=== PATIENT | female | born 1955 | race Caucasian/White ===

== ENCOUNTER 2024-03-03 16:21 | Inpatient (IN) | payer OTHER, SELFPAY ==
[2024-03-03] VITALS (9 sets, daily range): BP systolic 137–157; BP diastolic 62–96; BMI 20.3
--- NOTE | 2024-03-03 13:41 | ED.GENMED ---
History of Present Illness
General
Chief Complaint: Breathing Problem
Time Seen by Provider: 03/03/24 13:40
Travel History
Have you had any contact with someone who has COVID-19?: No
Do you have any symptoms of coronavirus? Fever > 100 degrees, chills, cough, shortness of breath, sore throat, loss of taste or smell, muscle aches, or headache?: No
History of Present Illness
History of Present Illness:
HPI: Patient presents with shortness of breath. She has a history of COPD. This feels exactly the time she required admission to the hospital back in October of last year. At that time she responded to IV steroids and IV antibiotics. 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
EXAM:
GENERAL: Well appearing in no distress
HEENT: Moist oral mucosa
CARDIOVASCULAR: No murmurs, normal heart rate, regular rhythm, No chest wall tenderness
PULMONARY: No respiratory distress, breath sounds are somewhat decreased with scattered wheeze
ABDOMEN: Soft with no peritoneal signs, no tenderness
NEUROLOGIC: Excellent strength all extremities, no coordination deficits
PSYCHIATRIC: Appropriate mental status, normal insight and judgement
EXTREMITIES: Nontender, no edema, moves all extremities equally
SKIN: No rash, no lesions
TIME OF INITIAL ENCOUNTER: 1:45 PM
NUMBER AND COMPLEXITY OF PROBLEMS ADDRESSED AT THE ENCOUNTER
� Chronic conditions affecting care: COPD, seasonal allergies
� Acute Exacerbation and/or Progression of Chronic Illness: This is an acute exacerbation of a chronic problem
� Differential Diagnosis includes: COPD exacerbation, pneumonia, reactive airway disease, viral syndrome
AMOUNT AND/OR COMPLEXITY OF DATA TO BE REVIEWED AND ANALYZED
� I performed an independent evaluation of and my interpretation is:
EKG:
CT:
X-rays: No definite acute abnormality on chest x-ray however the radiologist suspected an abnormality concerning for pneumonia at the [facility] start antibiotics
Laboratory Studies: CBC and chemistries unremarkable, BNP and troponin also unremarkable, COVID-negative
Other:
� Review of other/old records: I reviewed records. The patient was admitted here in October 2023t that time it is documented the patient also was on antibiotics and steroid taper which did not help. She was admitted with IV
steroids/nebs.
� Clinical information was obtained by an independent historian: None needed
� Prescriptions/Medications Considered but not given:
� Further testing considered but not performed:
RISK OF COMPLICATIONS AND/OR MORBIDITY OR MORTALITY OF PATIENT MANAGEMENT
� Social determinants of health affecting care: Patient lives at home
� Discussion with other providers: Hospitalist for admission at 3:14 PM
� Escalation of care including admission/observation vs risk of discharge considered: The patient has tried oral antibiotics and steroids without improvement. In the past she required admission for IV treatment. I reassessed
the patient at 3:20 PM. She does not feel comfortable with continued outpatient management. Given the abnormality noted by radiologist, will start IV antibiotics.
Past History
Past History
ED Past Medical History: Asthma and COPD; Negative HTN, Hypercholesterolemia or NIDDM
ED Past Surgical History: None
Social History
Tobacco: Smoker
Alcohol: None
Drug: None
Personal: Single
Living: with family
Phy Exam
Physical Exam
Physical Exam:
See HPI
Scores
Heart Failure Risk
Heart Failure Risk Score: Not Applicable
Course
Orders/Labs/Results
Orders:
Orders
03/03/24 13:41
CR Chest - 2 Views Urgent
Comment:
Reason For Exam: sob
03/03/24 13:47
Basic Metabolic Panel Urgent
Complete Blood Count/With Diff Urgent
Magnesium Urgent
NT-proBNP Urgent
Troponin I Urgent
Ipratropium/Albuterol Sulfate [Duoneb] 3 ml INH R NOW ONE
Ipratropium/Albuterol Sulfate [Duoneb] 3 ml INH R NOW ONE
03/03/24 13:48
MethylPREDNISolone PF [Solu-Medrol Pf] 125 mg IV NOW STA
03/03/24 14:05
COVID-19 Antigen Urgent
Source: Nasal Swab
03/03/24 15:21
Electrocardiogram (*1) Urgent
Reason for Study: Shortness of Breath
EKG- Treatment ONCE
03/03/24 15:48
Azithromycin 500 mg IVPB NOW Azithromycin 500 mg/250 ml [Zithromax Infusion] 500 mg in 250 ml IV NOW
CefTRIAXone [Rocephin] 1,000 mg IV NOW STA
Abnormal Lab Results
03/03/24
13:47
MCH 32.1 H pg
(27.0-31.0)
Abs Immat Gran (auto) 0.1 H 10^3/uL
(0-0.05)
Absolute Neuts (auto) 7.7 H 10^3/uL
(1.4-6.5)
Immature Gran % 0.7 H %
(0-0.5)
Neutrophils % 78.5 H %
(42.2-75.2)
Lymphocytes % 15.3 L %
(20.5-51.1)
03/03/24 13:47
03/03/24 13:47
Vital Signs
Initial and Last Documented VS:
Initial Vital Signs
Temp Pulse Resp BP Pulse Ox
97.9 F 111 18 157/96 90
03/03/24 13:07 03/03/24 13:07 03/03/24 13:07 03/03/24 13:07 03/03/24 13:07
Last Documented Vital Signs
Temp Pulse Resp BP Pulse Ox
97.9 F 110 15 155/79 91
03/03/24 13:07 03/03/24 15:30 03/03/24 15:30 03/03/24 15:11 03/03/24 15:30
*Critical Care Note
Total Time (30-74mins, 75-104mins- exclusive of procedures): Not Applicable
ED Attending Note
-
Portions of this chart may have been created with voice recognition software.� Occasional wrong word or��sound alike� substitutions may have occurred due to the inherent limitations of voice recognition software.
Discharge Plan
Departure
Patient Disposition: Admit
Date of Disposition: 03/03/24
Time of Disposition: 15:19
Presentation/result/management discussed w/ accepting MD/DO: Hospitalist
Patient with high blood pressure during this ER visit?: Yes
Discharge Problem:
COPD exacerbation
Prescriptions:
No Action
montelukast 10 MG tablet
10 mg PO HS
fluticasone propion-salmeterol [Wixela Inhub] 500-50 mcg/dose blister with device
1 inh INHALATION R BID
budesonide 0.5 mg/2 mL suspension for nebulization
0.5 mg inhalation R BID
multivitamin Tablet
1 tab PO HS
vitamin B complex Tablet Extended Release
1 tab PO HS
cetirizine 10 mg Tablet
10 mg PO DAILY
benzonatate 200 mg capsule
200 mg PO TID PRN (Reason: cough)
calcium carbonate-vitamin D3 [Calcium 600 + D(3)] 600 mg-5 mcg (200 unit) Tablet
1 tab PO HS
guaifenesin [Mucinex] 600 mg Tablet Extended Release 12hr
600 mg PO BID
clotrimazole 10 mg mark
10 mg mucous membrane 5/D
doxycycline hyclate 100 mg capsule
100 mg PO DAILY
ipratropium-albuterol 0.5 mg-3 mg(2.5 mg base)/3 mL solution for nebulization
3 ml INHALATION R TID
azithromycin 250 mg tablet
250 mg PO DAILY
famotidine 20 mg Tablet
20 mg PO BID PRN (Reason: heartburn/acid reflux)
methylprednisolone 4 mg tablets,dose pack
4 mg PO PER PKG DIR
Patient Comments:
03/03/2024: pt is on the 2nd to last day of pack
bupropion HCl 150 mg tablet extended release 24 hr
150 mg PO DAILY
Referrals:
Kirsty Mae MD [Family Provider] -
Interventions
Interventions:
*Risk Screen - Suicide Last Done: 03/03/24 13:07
*General Assessment Last Done: 03/03/24 13:07
*Neglect/Abuse Screening Last Done: 03/03/24 13:07
ED- Fall Risk Assessment Last Done: 03/03/24 13:49
*ED COVID-19 Vaccine History Last Done: 03/03/24 13:07
ED- Cardiac Assessment Last Done: 03/03/24 13:49
ED- Pulmonary Assessment Last Done: 03/03/24 13:47
Discharge Date and Time
Print Language: [place] CITIZEN
[2024-03-03] MEDS: DUONEB 3 ML INH ×2 (13:55→13:56)
[2024-03-03] MEDS: SOLU-MEDROL PF 125 MG IV (13:55)
[2024-03-03 14:02] LABS: % Basophils 0.3 % (0-2); % Immature Granulocytes 0.7 % (0-0.5); % Lymphocytes 15.3 % (20.5-51.1); % Monocytes 5.2 % (1.7-9.3); % Neutrophils 78.5 % (42.2-75.2); Absolute Immature Granulocytes 0.1 10^3/uL (0-0.05); Absolute Lymphocytes 1.5 10^3/uL (1.2-3.4); Absolute Monocytes 0.5 10^3/uL (0.1-0.6); Absolute Neutrophils 7.7 10^3/uL (1.4-6.5); Hematocrit 45.2 % (37.0-47.0); Hemoglobin 15.1 g/dL (12.0-16.0); Mean Corp Hgb Conc. 33.4 g/dL (33.0-37.0); Mean Corpuscular Hgb 32.1 pg (27.0-31.0); Mean Platelet Volume 9.6 fL (7.4-10.4); Nucleated Red Blood Cells % 0 %; Platelet Count 286 10^3/uL (130-400); Red Blood Cell Count 4.71 10^6/uL (4.20-5.40); Red Cell Dist. Width 12.5 % (11.5-14.5); White Blood Cell Count 9.8 10^3/uL (4.8-10.8)
[2024-03-03 14:19] LABS: Blood Urea Nitrogen 15 mg/dl (7-17); Calcium 9.9 mg/dl (8.4-10.2); Carbon Dioxide 27 mmol/L (22-30); Chloride 106 mmol/L (98-107); Estimated Creatinine Clearance 82 ml/min; Glucose 86 mg/dl (70-99); Potassium 4.2 mmol/L (3.5-5.1); Sodium 137 mmol/L (135-145); eGFR > 60.00
[2024-03-03 14:30] LABS: NT-proBNP 165 pg/ml; Troponin I < 0.012 ng/ml
[2024-03-03 14:37] LABS: COVID-19 Antigen Negative (Negative)
--- NOTE | 2024-03-03 16:08 | HPS.HSE ---
Family Physician
-
Family Physician: Kirsty Mae
Chief Complaint
-
Shortness of breath
History of Present Illness
68-year-old female with past medical history of COPD, GERD, onychomycosis, seasonal allergies came to the hospital with shortness of breath known to be in COPD exacerbation. Patient was seen by pulmonary outpatient 3 days ago and was prescribed
oral steroids along with doxycycline. Per patient it did not improve her symptoms. In the ED patient was wheezing and short of breath. Patient received IV Solu-Medrol. Chest x-ray was consistent with pneumonia. Denies fever/chills. Denies any
nausea, vomiting, diarrhea, constipation.
Medical History
Past Medical History
Past Medical History: Reports COPD and GERD
Past Surgical History: Reports Other (Lumpectomy, skin lesion excision)
Social History
Tobacco: Former Smoker
Alcohol: None
Drug: None
Family History
Family History: Not pertinent
Allergies / Home Medications
Allergies reflects when Allergies were last updated in [email or web address].
Home Medications with original date entered in [email or web address]
Allergy/Medication List:
Allergies
Allergy/AdvReac Type Severity Reaction Status Date / Time
[facility] All[facility] Rash Verified 03/03/24 13:09
Home Medications
montelukast 10 mg tablet 10 mg PO HS 05/11/20
benzonatate 200 mg capsule 200 mg PO TID PRN cough 10/22/23
budesonide 0.5 mg/2 mL suspension for nebulization 0.5 mg inhalation R BID 10/22/23
calcium carbonate 600 mg-vitamin D3 5 mcg (200 unit) tablet (Calcium 600 + D(3)) 1 tab PO HS 10/22/23
cetirizine 10 mg tablet 10 mg PO DAILY 10/22/23
fluticasone 500 mcg-salmeterol 50 mcg/dose blistr powdr for inhalation (Wixela Inhub) 1 inh inhalation R BID 10/22/23
guaifenesin 600 mg tablet, extended release 12 hr (Mucinex) 600 mg PO BID 10/22/23
multivitamin 1 tab PO HS 10/22/23
vitamin B complex 1 tab PO HS 10/22/23
azithromycin 250 mg tablet 250 mg PO DAILY 03/03/24
bupropion HCl 150 mg 24 hr tablet, extended release 150 mg PO DAILY 03/03/24
clotrimazole 10 mg mark 10 mg mucous membrane 5/D 03/03/24
doxycycline hyclate 100 mg capsule 100 mg PO DAILY 03/03/24
famotidine 20 mg tablet 20 mg PO BID PRN heartburn/acid reflux 03/03/24
ipratropium 0.5 mg-albuterol 3 mg (2.5 mg base)/3 mL nebulization soln 3 ml inhalation R TID 03/03/24
methylprednisolone 4 mg tablets in a dose pack 4 mg PO PER PKG DIR 03/03/24
Review of Systems
-
History Source: Patient
A 12 point ROS was completed and negative except as noted: Yes
Respiratory: Reports Trouble Breathing
Physical Exam
Vital Signs
Vital Signs
Temp Pulse Resp BP Pulse Ox
97.9 F 110 15 155/79 91
03/03/24 13:07 03/03/24 15:30 03/03/24 15:30 03/03/24 15:11 03/03/24 15:30
Physical Exam
General: No Apparent Distress and Comfortable
HEENT: Anicteric and Moist mucous membranes
Respiratory: Clear, Wheezes and Non Labored Respirations
Cardiac: S1/S2, Regular Rhythm and Tachycardia
Breast: Deferred by me
GI: Soft, Non Tender, Non Distended and Normal Bowel Sounds
Rectal: Deferred by Provider
Genito-urinary: No Hood
Musculoskeletal: No Edema
Neuro: Awake, Alert, Oriented and AO x 3
Psych: Calm and Intact Judgment/Insight
Laboratory Results
-
03/03/24 13:47
03/03/24 13:47
Laboratory Results
Troponin I < 0.012 ng/ml 03/03/24 13:47
Data Reviewed
-
Diagnostic Radiology: Report Reviewed by me
Lab Data: Labs Reviewed by me and Discussed with Patient
Impression/Plan
-
Acute COPD exacerbation
Start IV steroids
Pulmicort, Wixela
Xopenex/ipratropium standing and as needed; tachycardic after albuterol
Mucinex, Tessalon Perles, Acapella
Pulmonary evaluation
Pneumonia; suspect community acquired
start CFTX and azithromycin
monitor
History of GERD
Patient to follow-up with GI
Seasonal allergies
DVT prophylaxis
Lovenox
Full code
I spent a total of 77 minutes with the patient or on the floor. More than 50% of this time involved counseling and coordination of care.
[2024-03-03] MEDS: ROCEPHIN 1000 MG IV (16:26)
[2024-03-03] MEDS: ZITHROMAX INFUSION 250 IV (16:27)
[2024-03-03] MEDS: LOVENOX 40 MG SC (18:44)
[2024-03-03] MEDS: MYCELEX TROCHE 10 MG PO ×2 (18:45→21:10)
[2024-03-03] MEDS: XOPENEX 1.25 MG INHALANT SOLUTION INH ×2 (19:22→20:08)
[2024-03-03] MEDS: ADVAIR HFA 230/21 MCG INHALER 2 PUFF INH (19:22)
[2024-03-03] MEDS: PULMICORT 0.5 MG INH (19:23)
[2024-03-03] MEDS: ATROVENT NEBULES 0.5 MG INH (19:23)
[2024-03-03] MEDS: MUCINEX 1200 MG PO (19:48)
[2024-03-03] MEDS: SINGULAIR 10 MG PO (21:10)
[2024-03-03] MEDS: THERAGRAN 1 TABLET PO (21:10)
[2024-03-03] MEDS: OSCAL 500 + D 500 MG PO (21:10)
[2024-03-03] MEDS: B COMPLEX w/VITAMIN C 1 CAPLET PO (21:10)
[2024-03-03] MEDS: TESSALON PERLES 200 MG PO (21:10)
[2024-03-03] MEDS: TYLENOL 650 MG PO (22:00)
[2024-03-04] VITALS (7 sets, daily range): BP systolic 137–162; BP diastolic 78–90; BMI 20.1
[2024-03-04 07:10] LABS: % Basophils 0.1 % (0-2); % Immature Granulocytes 0.6 % (0-0.5); % Monocytes 6.5 % (1.7-9.3); % Neutrophils 77.8 % (42.2-75.2); Absolute Immature Granulocytes 0.1 10^3/uL (0-0.05); Absolute Lymphocytes 1.5 10^3/uL (1.2-3.4); Absolute Monocytes 0.7 10^3/uL (0.1-0.6); Absolute Neutrophils 7.8 10^3/uL (1.4-6.5); Hematocrit 37.2 % (37.0-47.0); Hemoglobin 12.9 g/dL (12.0-16.0); Mean Corp Hgb Conc. 34.7 g/dL (33.0-37.0); Mean Corpuscular Hgb 31.9 pg (27.0-31.0); Mean Corpuscular Volume 92.1 fL (81.0-99.0); Mean Platelet Volume 9.4 fL (7.4-10.4); Nucleated Red Blood Cells % 0 %; Platelet Count 260 10^3/uL (130-400); Red Blood Cell Count 4.04 10^6/uL (4.20-5.40); Red Cell Dist. Width 12.6 % (11.5-14.5)
[2024-03-04 07:51] LABS: Blood Urea Nitrogen 18 mg/dl (7-17); Calcium 9.6 mg/dl (8.4-10.2); Carbon Dioxide 26 mmol/L (22-30); Chloride 106 mmol/L (98-107); Estimated Creatinine Clearance 81 ml/min; Glucose 112 mg/dl (70-99); Potassium 4.1 mmol/L (3.5-5.1); Sodium 137 mmol/L (135-145); eGFR > 60.00
[2024-03-04] MEDS: MYCELEX TROCHE 10 MG PO ×5 (08:17→20:34)
[2024-03-04] MEDS: MUCINEX 1200 MG PO ×2 (08:17→20:33)
[2024-03-04] MEDS: TESSALON PERLES 200 MG PO ×3 (08:17→20:34)
[2024-03-04] MEDS: DECADRON 4 MG IV ×2 (08:17→15:17)
[2024-03-04] MEDS: ZYRTEC 10 MG PO (08:17)
[2024-03-04] MEDS: WELLBUTRIN XL (24 hour extended release) 150 MG PO (08:17)
[2024-03-04] MEDS: ADVAIR HFA 230/21 MCG INHALER 2 PUFF INH ×2 (08:35→19:35)
[2024-03-04] MEDS: XOPENEX 1.25 MG INHALANT SOLUTION INH ×3 (08:36→19:36)
[2024-03-04] MEDS: PULMICORT 0.5 MG INH ×2 (08:36→19:35)
[2024-03-04] MEDS: ATROVENT NEBULES 0.5 MG INH ×3 (08:36→19:35)
[2024-03-04 09:47] LABS: Hepatitis C Antibody Negative (Negative)
--- NOTE | 2024-03-04 13:12 | W.PN.HOSP.TC ---
Today's Communication/Plan
-
monitor vital signs and see plan
Continue with Decadwisam nebs
Pulmonary to see
mayelin olsen acapella
Assessment / Plan
Assessment / Plan
General: No Apparent Distress and Comfortable
HEENT: Anicteric and Moist mucous membranes
Respiratory: Clear, Wheezes and Non Labored Respirations
Cardiac: S1/S2, Regular Rhythm and Tachycardia
GI: Soft, Non Tender, Non Distended and Normal Bowel Sounds
Genito-urinary: No Hood
Musculoskeletal: No Edema
Neuro: Awake, Alert, Oriented and AO x 3
Psych: Calm and Intact Judgment/Insight
Acute COPD exacerbation
cw IV steroids
Pulmicort, Wixela
Xopenex/ipratropium standing and as needed; tachycardic after albuterol
Mayelin Olsen Acapella
Pulmonary consulted
follows with Dr Foster outpatient
Pneumonia; suspect community acquired
cw CFTX and azithromycin
monitor
History of GERD
Patient to follow-up with GI
Seasonal allergies
DVT prophylaxis
Lovenox
Full code
Anticipated Discharge: > 48 hours
Subjective/Interval History
-
Date of Service: March 04, 2024
denies pain
Objective Data
-
Labs:
Laboratory Results
03/04/24
06:47
WBC 10.0
Hgb 12.9
Hct 37.2
Plt Count 260
Sodium 137
Potassium 4.1
Chloride 106
Carbon Dioxide 26
BUN 18 H
Creatinine 0.6
Glucose 112 H
Calcium 9.6
Vital Signs:
Vital Signs
Temp Pulse Resp BP Pulse Ox
98.1 F 103 20 142/78 95
03/04/24 11:00 03/04/24 12:51 03/04/24 12:51 03/04/24 11:00 03/04/24 12:51
--- NOTE | 2024-03-04 14:00 | CON.PUL ---
Consultation
Consultation Request
Date/Time Consultation Requested: 03/04/2024
Date/Time Consultation Performed: 03/04/2024
Requesting Provider: Dr. Claire
Performing Provider: Dr. Orlando Manuel
Reason for Consultation: Acute exacerbation of COPD
Medical History
-
History of Present Illness:
68-year-old woman with past medical history significant for COPD, GERD, seasonal allergies who came to the hospital complaining of shortness of breath. She was found to be in acute exacerbation of COPD. 3 days ago she was seen in the pulmonary
office. She was prescribed doxycycline and steroids. Symptoms continued to progress.
She was found to be bronchospastic in the emergency room. She was placed on IV steroids and nebulizer.
Chest x-ray was consistent with pneumonia.
We were consulted on 03/04/2024 for evaluation.
Past Medical History
Past Medical History: Other (See assessment and plan section)
Social History
Tobacco: Former Smoker
Alcohol: None
Drug: None
Family History
Family History: Reviewed & Not Pertinent
Allergies / Home Medications
Allergies
Allergy/AdvReac Type Severity Reaction Status Date / Time
[facility] Allergy Rash Verified 03/03/24 13:09
Home Medications
�Medication �Instructions �Recorded �Confirmed �Last Taken �Type
montelukast 10 mg tablet 10 mg PO HS ASTHMA 05/11/20 03/03/24 03/02/24 History
benzonatate 200 mg capsule 200 mg PO TID PRN cough 10/22/23 03/03/24 10/22/23 History
budesonide 0.5 mg/2 mL suspension 0.5 mg inhalation R BID 10/22/23 03/03/24 03/03/24 History
for nebulization Lung/Breathing Issues
calcium carbonate 600 mg-vitamin 1 tab PO HS Supplement 10/22/23 03/03/24 03/02/24 History
D3 5 mcg (200 unit) tablet
(Calcium 600 + D(3))
cetirizine 10 mg tablet 10 mg PO DAILY Allergies 10/22/23 03/03/24 03/03/24 History
fluticasone 500 mcg-salmeterol 50 1 inh inhalation R BID 10/22/23 03/03/24 03/03/24 History
mcg/dose blistr powdr for Lung/Breathing Issues
inhalation (Wixela Inhub)
guaifenesin 600 mg tablet, 600 mg PO BID Cough 10/22/23 03/03/24 03/03/24 History
extended release 12 hr (Mucinex)
multivitamin 1 tab PO HS Supplement 10/22/23 03/03/24 03/02/24 History
vitamin B complex 1 tab PO HS Supplement 10/22/23 03/03/24 03/02/24 History
azithromycin 250 mg tablet 250 mg PO DAILY Infection 03/03/24 03/03/24 2 Days Ago History
~03/01/24
bupropion HCl 150 mg 24 hr tablet, 150 mg PO DAILY Mental 03/03/24 03/03/24 03/03/24 History
extended release Health/Anxiety
clotrimazole 10 mg mark 10 mg mucous membrane 5/D 03/03/24 03/03/24 03/03/24 History
doxycycline hyclate 100 mg capsule 100 mg PO DAILY Infection 03/03/24 03/03/24 03/03/24 History
famotidine 20 mg tablet 20 mg PO BID PRN heartburn/acid 03/03/24 03/03/24 Unknown History
reflux
ipratropium 0.5 mg-albuterol 3 mg 3 ml inhalation R TID 03/03/24 03/03/24 03/03/24 History
(2.5 mg base)/3 mL nebulization Lung/Breathing Issues
soln
methylprednisolone 4 mg tablets in 4 mg PO PER PKG DIR 03/03/24 03/03/24 03/03/24 History
a dose pack Anti-Inflammatory 2 tabs
Review of Systems
-
History Source: Patient
All other systems: Negative unless noted
Vitals / Labs / Diagnostic Testing
Vital Signs
Temp Pulse Resp BP Pulse Ox
98.1 F 103 20 142/78 95
03/04/24 11:00 03/04/24 12:51 03/04/24 12:51 03/04/24 11:00 03/04/24 12:51
Lab Data
03/04/24 06:47
03/04/24 06:47
Diagnostic Testing:
Physical Exam
-
HEENT: Normocephalic
Cardiovascular: S1/S2
Respiratory: Wheeze and Non-Labored Respirations
GI: Soft and Non Distended
Skin: Warm
General: Respiratory Distress (n)
Assessment
-
68-year-old woman with history of COPD, severe. Usually follows up with Dr. Foster. Back to the emergency room complaining of shortness of breath and coughing. Found to have left lower lobe pneumonia and bronchospasm. We were consulted on
03/04/2024 for evaluation
Acute exacerbation of COPD
proBNP and cardiac biomarkers negative
Community-acquired pneumonia, LLL
Chest x-ray 03/03/2024: Showed left lower lobe infiltrate.
Sputum culture pending
Chronic exertional dyspnea
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
Admission for acute exacerbation in October 2023
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 On fluticasone/salmeterol (wixela), azithromycin, albuterol
Pulmonary function testing 07/07/2023: Severe airflow obstruction. FEV1 0.81 L - 37% of predicted. FEV1/FVC ratio 35%. Air-trapping RV/TLC ratio 50%. Diffusion capacity is severely reduced at 21%.
Thyroid nodule
Lumpectomy for benign lesion
Former smoker: 40+ pack year history. Quit 10/2023
Assessment and plan:
Continue with current plan-in the outpatient setting on maximal medical therapy. Patient does have significant air trapping and hyperinflation based on last pulmonary function testing likely contributing to her exertional dyspnea.
-
Continue dexamethasone without change. Minimal expiratory wheezing with forced expiration. Hopefully can start tapering down steroids tomorrow.
Pulmicort/albuterol/Atrovent physical therapy as tolerated
Nebulizers
Antibiotics for community-acquired pneumonia ceftriaxone/azithromycin
Sputum culture if possible
Secretion clearance interventions: Acapella device, increase activity as able.
Continue mucolytic's/antitussive.
Deep breathing exercises.
-
Pulmonary supplemental oxygen. Usually normal oxygen at home.
Wean off as able.
-
Patient will need radiographic follow-up to document resolution of left lower lobe infiltrate. Based on prior CT chest from 10/2023 there was no abnormality in that area.
-
May benefit from pulmonary rehabilitation if not provided in the past.
-
DVT prophylaxis- lovenox
--- NOTE | 2024-03-04 15:06 | CM ---
Patient seen bedside, initial assessment completed. Patient reports she resides with her sister, brother in law, and nephew in a one story home, two steps to enter. Patient denies DME, VN, or SNF. Patient confirms PCP Kirsty Mae, pharmacy [facility]
[place]. Patient confirms prescription coverage, denies food insecurities at home. CM will continue to follow for discharge planning needs.
Plan; home no needs likely.
[2024-03-04] MEDS: STERILE WATER FOR INJECTION 10 ML IV (15:18)
[2024-03-04] MEDS: ROCEPHIN 1000 MG IV (15:18)
[2024-03-04] MEDS: ZITHROMAX INFUSION 250 IV (15:18)
[2024-03-04] MEDS: LOVENOX 40 MG SC (17:28)
[2024-03-04] MEDS: B COMPLEX w/VITAMIN C 1 CAPLET PO (20:34)
[2024-03-04] MEDS: SINGULAIR 10 MG PO (20:34)
[2024-03-04] MEDS: OSCAL 500 + D 500 MG PO (20:34)
[2024-03-04] MEDS: THERAGRAN 1 TABLET PO (20:34)
[2024-03-05] VITALS (7 sets, daily range): BP systolic 115–154; BP diastolic 65–90; PULSE 110; O2SAT 95; BMI 20.4
[2024-03-05] MEDS: DECADRON 4 MG IV ×4 (00:36→23:08)
[2024-03-05 08:01] LABS: % Basophils 0.2 % (0-2); % Immature Granulocytes 1.1 % (0-0.5); % Monocytes 4.2 % (1.7-9.3); % Neutrophils 84.5 % (42.2-75.2); Absolute Immature Granulocytes 0.2 10^3/uL (0-0.05); Absolute Lymphocytes 1.3 10^3/uL (1.2-3.4); Absolute Monocytes 0.6 10^3/uL (0.1-0.6); Absolute Neutrophils 11.2 10^3/uL (1.4-6.5); Hematocrit 40.4 % (37.0-47.0); Hemoglobin 13.6 g/dL (12.0-16.0); Mean Corp Hgb Conc. 33.7 g/dL (33.0-37.0); Mean Corpuscular Hgb 31.9 pg (27.0-31.0); Mean Corpuscular Volume 94.6 fL (81.0-99.0); Mean Platelet Volume 9.7 fL (7.4-10.4); Nucleated Red Blood Cells % 0 %; Platelet Count 286 10^3/uL (130-400); Red Blood Cell Count 4.27 10^6/uL (4.20-5.40); Red Cell Dist. Width 12.6 % (11.5-14.5); White Blood Cell Count 13.3 10^3/uL (4.8-10.8)
[2024-03-05] MEDS: PULMICORT 0.5 MG INH ×2 (08:01→20:16)
[2024-03-05] MEDS: XOPENEX 1.25 MG INHALANT SOLUTION INH ×3 (08:02→20:16)
[2024-03-05] MEDS: MYCELEX TROCHE 10 MG PO ×4 (08:02→20:48)
[2024-03-05] MEDS: MUCINEX 1200 MG PO ×2 (08:02→20:48)
[2024-03-05] MEDS: ADVAIR HFA 230/21 MCG INHALER 2 PUFF INH ×2 (08:02→20:05)
[2024-03-05] MEDS: TESSALON PERLES 200 MG PO ×3 (08:02→20:48)
[2024-03-05] MEDS: ATROVENT NEBULES 0.5 MG INH ×3 (08:02→20:05)
[2024-03-05] MEDS: ZYRTEC 10 MG PO (08:05)
[2024-03-05] MEDS: WELLBUTRIN XL (24 hour extended release) 150 MG PO (08:05)
[2024-03-05 08:37] LABS: Blood Urea Nitrogen 19 mg/dl (7-17); Calcium 9.9 mg/dl (8.4-10.2); Carbon Dioxide 28 mmol/L (22-30); Chloride 106 mmol/L (98-107); Estimated Creatinine Clearance 82 ml/min; Glucose 117 mg/dl (70-99); Potassium 4.4 mmol/L (3.5-5.1); Sodium 137 mmol/L (135-145); eGFR > 60.00
--- NOTE | 2024-03-05 10:09 | W.PN.PUL3 ---
Today's Communication / Plan
-
O2
Steroids
Budesonide
Xopenex-atrovent
Up OOB as tolerated
PT
IS
Assessment
-
68-year-old woman with history of COPD, severe. Usually follows up with Dr. Foster. Back to the emergency room complaining of shortness of breath and coughing. Found to have left lower lobe pneumonia and bronchospasm. We were consulted on
03/04/2024 for evaluation
Acute exacerbation of COPD
proBNP and cardiac biomarkers negative
Community-acquired pneumonia, LLL
Chest x-ray 03/03/2024: Showed left lower lobe infiltrate.
Sputum culture with NGTD
Chronic exertional dyspnea
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
Admission for acute exacerbation in October 2023
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 On fluticasone/salmeterol (wixela), azithromycin, albuterol
Pulmonary function testing 07/07/2023: Severe airflow obstruction. FEV1 0.81 L - 37% of predicted. FEV1/FVC ratio 35%. Air-trapping RV/TLC ratio 50%. Diffusion capacity is severely reduced at 21%.
Thyroid nodule
Lumpectomy for benign lesion
Former smoker: 40+ pack year history. Quit 10/2023
Assessment and plan:
Continue with current plan-in the outpatient setting on maximal medical therapy. Patient does have significant air trapping and hyperinflation based on last pulmonary function testing likely contributing to her exertional dyspnea.
-
Continue dexamethasone without change. Minimal expiratory wheezing with forced expiration. Hopefully can start tapering down steroids in next 1-2 days.
Pulmicort/xopenex/Atrovent, physical therapy as tolerated
Antibiotics for community-acquired pneumonia ceftriaxone/azithromycin
Sputum culture shows NGTD
Secretion clearance interventions: Acapella device, increase activity as able.
Continue mucolytics/antitussive.
Deep breathing exercises.
-
Pulmonary supplemental oxygen. Usually normal oxygen at home.
Wean off as able.
-
Patient will need radiographic follow-up to document resolution of left lower lobe infiltrate. Based on prior CT chest from 02/2023 there was no abnormality in that area.
-
May benefit from pulmonary rehabilitation if not provided in the past.
-
DVT prophylaxis- lovenox
Total time spent today was 35 minutes for this encounter. Time includes reviewing laboratory test/imaging results, reviewing pertinent medical records, obtaining and reviewing medical history, performing an appropriate exam, ordering medications,
tests and procedures. Time also includes documentation of this encounter, coordinating patient care and communicating with other healthcare professionals. Total time does not include separately billed tests performed on this date of service.
Subjective Data
-
Date of Service:
Date of Service: March 05, 2024
Chief Complaint: Pulmonary Follow Up
Subjective:
Patient seen today. Currently on 2 L/min breathing comfortably. She was upset when I walk into the room because her food for dinner had come early and she was not hungry. She says she was still stuffed from lunch. She is really just frustrated
because she is back in the hospital again and she is tired of being sick. She has a minimal cough. She denies chest pain, headache, fevers or chills.
Review of Systems
General: Other (Negative unless mentioned above)
Objective Data
Data Reviewed
Vital Signs / I&O / Oxygen:
Vital Signs
Temp Pulse Resp BP Pulse Ox
97.6 F 90 18 154/90 96
03/05/24 07:00 03/05/24 08:06 03/05/24 08:06 03/05/24 07:00 03/05/24 08:06
Intake and Output
03/04/24 03/05/24 03/06/24
06:59 06:59 06:59
Intake Total 1210 / 1210
Balance 1210 / 1210
SaO2 96
Nasal Cannula flow liters per 2
minute
Physical Exam
General: Respiratory Distress (Negative) and Comfortable
HEENT: Normocephalic and Anicteric
Cardiovascular: Peripheral Edema (Negative) and Other (Normal rate)
Respiratory: Wheeze (Posterior lung montoya from the middle lobes to upper lobes bilaterally), Crackles (Negative), Rhonchi (Negative), Non-Labored Respirations and Other (Coarse breath sounds heard in the bases)
GI: Soft, Non Distended and Non Tender
Neurology: Awake and Alert
Skin: Warm, Dry and Cyanosis (Negative)
Labs/Micro/Reports
Lab Data
03/05/24 07:28
03/05/24 07:28
Microbiology
03/04/24 09:27 Sputum Respiratory Culture - Final
03/04/24 09:27 Sputum Gram Stain - Final
--- NOTE | 2024-03-05 12:15 | W.PN.HOSP.TC ---
Today's Communication/Plan
-
Monitor vital signs and see plan
Continue with steroids, nebs
Continue with antibiotics
Wean oxygen as tolerated
Will need home O2 evaluation prior to DC
Assessment / Plan
Assessment / Plan
General: No Apparent Distress and Comfortable
HEENT: Anicteric and Moist mucous membranes
Respiratory: Clear, Wheezes and Non Labored Respirations
Cardiac: S1/S2, Regular Rhythm and Tachycardia
GI: Soft, Non Tender, Non Distended and Normal Bowel Sounds
Genito-urinary: No Hood
Musculoskeletal: No Edema
Neuro: Awake, Alert, Oriented and AO x 3
Psych: Calm and Intact Judgment/Insight
Acute COPD exacerbation
Acute hypoxic respiratory insufficiency secondary to above, wean oxygen as tolerated. Will need home O2 evaluation prior to DC
cw IV steroids
Pulmicort, Wixela
Xopenex/ipratropium standing and as needed; tachycardic after albuterol
Mucinex, Tessalon Perles, Acapella
Pulmonary following
follows with Dr Foster outpatient
Pneumonia; suspect community acquired
cw CFTX and azithromycin
monitor
History of GERD
Patient to follow-up with GI
Seasonal allergies
DVT prophylaxis
Lovenox
Full code
Anticipated Discharge: 24 - 48 hours
Subjective/Interval History
-
Date of Service: March 05, 2024
Denies pain
Objective Data
-
Labs:
Laboratory Results
03/05/24
07:28
WBC 13.3 H
Hgb 13.6
Hct 40.4
Plt Count 286
Sodium 137
Potassium 4.4
Chloride 106
Carbon Dioxide 28
BUN 19 H
Creatinine 0.6
Glucose 117 H
Calcium 9.9
Vital Signs:
Vital Signs
Temp Pulse Resp BP Pulse Ox
97.5 F 110 20 144/84 95
03/05/24 11:00 03/05/24 11:00 03/05/24 11:00 03/05/24 11:00 03/05/24 11:00
I&O
03/04/24 03/05/24 03/06/24
06:59 06:59 06:59
Intake Total 1210 / 1210
Balance 1210 / 1210
[2024-03-05] MEDS: MYCELEX TROCHE PO (13:27)
[2024-03-05] MEDS: ROCEPHIN 1000 MG IV (15:54)
[2024-03-05] MEDS: STERILE WATER FOR INJECTION 10 ML IV (15:54)
[2024-03-05] MEDS: ZITHROMAX INFUSION 250 IV (15:54)
[2024-03-05] MEDS: LOVENOX 40 MG SC (17:47)
[2024-03-05] MEDS: B COMPLEX w/VITAMIN C 1 CAPLET PO (20:48)
[2024-03-05] MEDS: THERAGRAN 1 TABLET PO (20:48)
[2024-03-05] MEDS: SINGULAIR 10 MG PO (20:48)
[2024-03-05] MEDS: OSCAL 500 + D 500 MG PO (20:48)
[2024-03-06 03:27] VITALS: BP 147/88
[2024-03-06 05:08] VITALS: BMI 20.5
[2024-03-06 07:35] VITALS: BP 146/97
[2024-03-06] MEDS: MYCELEX TROCHE 10 MG PO ×5 (08:01→21:32)
[2024-03-06] MEDS: ZYRTEC 10 MG PO (08:01)
[2024-03-06] MEDS: DECADRON 4 MG IV ×3 (08:01→23:16)
[2024-03-06] MEDS: TESSALON PERLES 200 MG PO ×3 (08:01→21:30)
[2024-03-06] MEDS: MUCINEX 1200 MG PO ×2 (08:01→19:56)
[2024-03-06] MEDS: WELLBUTRIN XL (24 hour extended release) 150 MG PO (08:01)
[2024-03-06] MEDS: ATROVENT NEBULES 0.5 MG INH ×3 (08:08→20:04)
[2024-03-06] MEDS: ADVAIR HFA 230/21 MCG INHALER 2 PUFF INH ×2 (08:08→20:04)
[2024-03-06] MEDS: PULMICORT 0.5 MG INH ×2 (08:08→20:04)
[2024-03-06] MEDS: XOPENEX 1.25 MG INHALANT SOLUTION INH ×3 (08:09→20:04)
[2024-03-06 09:13] LABS: % Basophils 0.2 % (0-2); % Immature Granulocytes 1.4 % (0-0.5); % Lymphocytes 9.9 % (20.5-51.1); % Monocytes 4.6 % (1.7-9.3); % Neutrophils 83.9 % (42.2-75.2); Absolute Immature Granulocytes 0.2 10^3/uL (0-0.05); Absolute Lymphocytes 1.2 10^3/uL (1.2-3.4); Absolute Monocytes 0.6 10^3/uL (0.1-0.6); Hematocrit 40.9 % (37.0-47.0); Hemoglobin 13.6 g/dL (12.0-16.0); Mean Corp Hgb Conc. 33.3 g/dL (33.0-37.0); Mean Corpuscular Hgb 31.9 pg (27.0-31.0); Nucleated Red Blood Cells % 0 %; Platelet Count 265 10^3/uL (130-400); Red Blood Cell Count 4.26 10^6/uL (4.20-5.40); Red Cell Dist. Width 12.8 % (11.5-14.5)
[2024-03-06 09:33] LABS: Blood Urea Nitrogen 26 mg/dl (7-17); Calcium 9.7 mg/dl (8.4-10.2); Carbon Dioxide 25 mmol/L (22-30); Chloride 108 mmol/L (98-107); Estimated Creatinine Clearance 83 ml/min; Glucose 116 mg/dl (70-99); Potassium 4.3 mmol/L (3.5-5.1); Sodium 138 mmol/L (135-145); eGFR > 60.00
[2024-03-06 11:36] VITALS: BP 143/78
--- NOTE | 2024-03-06 12:21 | W.PN.HOSP.TC ---
Today's Communication/Plan
-
Monitor vital signs and see plan
Wean oxygen as tolerated
If continues to be symptomatic then consider CT chest
Continue with nebs, steroids
Continue with antibiotics
Assessment / Plan
Assessment / Plan
General: No Apparent Distress and Comfortable
HEENT: Anicteric and Moist mucous membranes
Respiratory: Clear, Wheezes and Non Labored Respirations
Cardiac: S1/S2, Regular Rhythm and Tachycardia
GI: Soft, Non Tender, Non Distended and Normal Bowel Sounds
Genito-urinary: No Hood
Musculoskeletal: No Edema
Neuro: Awake, Alert, Oriented and AO x 3
Psych: Calm and Intact Judgment/Insight
Acute COPD exacerbation
Acute hypoxic respiratory insufficiency secondary to above, wean oxygen as tolerated. Will need home O2 evaluation prior to DC; feeling sob with ambulation today today. If symptoms do not improve then consider CT chest
cw IV steroids
Pulmicort, Wixela
Xopenex/ipratropium standing and as needed; tachycardic after albuterol
Mucinex, Tessalon Perles, Acapella
Pulmonary following
follows with Dr Fsoter outpatient
Pneumonia; suspect community acquired
cw CFTX and azithromycin
monitor
History of GERD
Patient to follow-up with GI
Seasonal allergies
DVT prophylaxis
Lovenox
Full code
Anticipated Discharge: 24 - 48 hours
Subjective/Interval History
-
Date of Service: March 06, 2024
Feels short of breath with ambulation today
Objective Data
-
Labs:
Laboratory Results
03/06/24
08:25
WBC 12.0 H
Hgb 13.6
Hct 40.9
Plt Count 265
Sodium 138
Potassium 4.3
Chloride 108 H
Carbon Dioxide 25
BUN 26 H
Creatinine 0.6
Glucose 116 H
Calcium 9.7
Vital Signs:
Vital Signs
Temp Pulse Resp BP Pulse Ox
97.5 F 92 20 146/97 95
03/06/24 07:35 03/06/24 08:10 03/06/24 08:10 03/06/24 07:35 03/06/24 08:10
I&O
03/05/24 03/06/24 03/07/24
06:59 06:59 06:59
Intake Total 1210 / 1210 1420 / 1420
Balance 1210 / 1210 1420 / 1420
[2024-03-06 15:36] VITALS: BP 138/86
[2024-03-06] MEDS: STERILE WATER FOR INJECTION 10 ML IV (16:20)
[2024-03-06] MEDS: ROCEPHIN 1000 MG IV (16:20)
[2024-03-06] MEDS: ZITHROMAX INFUSION 250 IV (16:24)
[2024-03-06] MEDS: TYLENOL 650 MG PO (16:24)
--- NOTE | 2024-03-06 16:40 | W.PN.PUL3 ---
Today's Communication / Plan
-
O2 with home O2 assessment prior to discharge
Steroids
Budesonide
Xopenex-atrovent
Advair
Order codeine cough syrup for coughing spells
Up OOB as tolerated
PT
IS
Assessment
-
68-year-old woman with history of COPD, severe. Usually follows up with Dr. Foster. Back to the emergency room complaining of shortness of breath and coughing. Found to have left lower lobe pneumonia and bronchospasm. We were consulted on
03/04/2024 for evaluation
Acute exacerbation of COPD
proBNP and cardiac biomarkers negative
Community-acquired pneumonia, LLL
Chest x-ray 03/03/2024: Showed left lower lobe infiltrate.
Sputum culture with NGTD
Chronic exertional dyspnea
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
Admission for acute exacerbation in October 2023
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 On fluticasone/salmeterol (wixela), azithromycin, albuterol
Pulmonary function testing 07/07/2023: Severe airflow obstruction. FEV1 0.81 L - 37% of predicted. FEV1/FVC ratio 35%. Air-trapping RV/TLC ratio 50%. Diffusion capacity is severely reduced at 21%.
Thyroid nodule
Lumpectomy for benign lesion
Former smoker: 40+ pack year history. Quit 10/2023
Assessment and plan:
Continue with current plan-in the outpatient setting on maximal medical therapy. Patient does have significant air trapping and hyperinflation based on last pulmonary function testing likely contributing to her exertional dyspnea.
-
Continue dexamethasone without change. Minimal expiratory wheezing with forced expiration. Would taper down to 4mg IV q12hr tomorrow
Pulmicort/xopenex/Atrovent, physical therapy as tolerated
Advair 230mcg - rinse mouth after ICS
Antibiotics for community-acquired pneumonia ceftriaxone/azithromycin
Sputum culture shows NGTD
Secretion clearance interventions: Acapella device, increase activity as able.
Continue mucolytics/antitussive.
Add codeine cough syrup for coughing spells
Deep breathing exercises.
-
Continue supplemental oxygen. Usually not on oxygen at home.
Wean off as able
Check walking pulse ox prior to discharge
-
Patient will need radiographic follow-up to document resolution of left lower lobe infiltrate. Based on prior CT chest from 02/2023 there was no abnormality in that area.
-
May benefit from pulmonary rehabilitation if not provided in the past.
-
DVT prophylaxis- lovenox
Total time spent today was 35 minutes for this encounter. Time includes reviewing laboratory test/imaging results, reviewing pertinent medical records, obtaining and reviewing medical history, performing an appropriate exam, ordering medications,
tests and procedures. Time also includes documentation of this encounter, coordinating patient care and communicating with other healthcare professionals. Total time does not include separately billed tests performed on this date of service.
Subjective Data
-
Date of Service:
Date of Service: March 06, 2024
Chief Complaint: Pulmonary Follow Up
Subjective:
Patient seen today at bedside. She is on 2 L/min nasal cannula breathing comfortably. She sometimes takes off the oxygen when she has to go to the bathroom but she feels very short of breath when she does this. She feels well overall. She denies
shortness of breath at rest. Denies chest pain, headache, fevers or chills.
Review of Systems
General: Other (Negative unless mentioned above)
Objective Data
Data Reviewed
Vital Signs / I&O / Oxygen:
Vital Signs
Temp Pulse Resp BP Pulse Ox
98.2 F 111 18 143/78 95
03/06/24 11:36 03/06/24 14:43 03/06/24 14:43 03/06/24 11:36 03/06/24 14:43
Intake and Output
03/05/24 03/06/24 03/07/24
06:59 06:59 06:59
Intake Total 1210 / 1210 1420 / 1420
Balance 1210 / 1210 1420 / 1420
SaO2 95
Nasal Cannula flow liters per 2
minute
Physical Exam
General: Respiratory Distress (Negative) and Comfortable
HEENT: Normocephalic and Anicteric
Cardiovascular: Peripheral Edema (Negative) and Other (Normal rate)
Respiratory: Wheeze (Negative), Crackles (Bilateral), Rhonchi (Negative) and Non-Labored Respirations
GI: Soft, Non Distended and Non Tender
Neurology: Awake and Alert
Skin: Warm, Dry and Cyanosis (Negative)
Labs/Micro/Reports
Lab Data
03/06/24 08:25
03/06/24 08:25
Microbiology
03/04/24 09:27 Sputum Respiratory Culture - Final
03/04/24 09:27 Sputum Gram Stain - Final
[2024-03-06] MEDS: LOVENOX 40 MG SC (17:41)
[2024-03-06 19:02] VITALS: BP 137/74
[2024-03-06] MEDS: SINGULAIR 10 MG PO (21:30)
[2024-03-06] MEDS: THERAGRAN 1 TABLET PO (21:30)
[2024-03-06] MEDS: OSCAL 500 + D 500 MG PO (21:31)
[2024-03-06] MEDS: B COMPLEX w/VITAMIN C 1 CAPLET PO (21:32)
[2024-03-06 23:22] VITALS: BP 154/88
[2024-03-07 03:15] VITALS: BP 151/87
[2024-03-07 06:00] VITALS: BMI 20.5
[2024-03-07 07:21] VITALS: BP 149/87
[2024-03-07 08:01] LABS: % Basophils 0.4 % (0-2); % Immature Granulocytes 1.9 % (0-0.5); % Lymphocytes 9.9 % (20.5-51.1); % Monocytes 5.6 % (1.7-9.3); % Neutrophils 82.2 % (42.2-75.2); Absolute Immature Granulocytes 0.2 10^3/uL (0-0.05); Absolute Lymphocytes 1.1 10^3/uL (1.2-3.4); Absolute Monocytes 0.6 10^3/uL (0.1-0.6); Absolute Neutrophils 9.2 10^3/uL (1.4-6.5); Hematocrit 38.7 % (37.0-47.0); Hemoglobin 12.8 g/dL (12.0-16.0); Mean Corp Hgb Conc. 33.1 g/dL (33.0-37.0); Mean Corpuscular Hgb 31.6 pg (27.0-31.0); Mean Corpuscular Volume 95.6 fL (81.0-99.0); Mean Platelet Volume 9.7 fL (7.4-10.4); Nucleated Red Blood Cells % 0 %; Platelet Count 253 10^3/uL (130-400); Red Blood Cell Count 4.05 10^6/uL (4.20-5.40); Red Cell Dist. Width 12.9 % (11.5-14.5); White Blood Cell Count 11.2 10^3/uL (4.8-10.8)
[2024-03-07] MEDS: ATROVENT NEBULES 0.5 MG INH ×3 (08:06→19:24)
[2024-03-07] MEDS: PULMICORT 0.5 MG INH ×2 (08:06→19:24)
[2024-03-07] MEDS: XOPENEX 1.25 MG INHALANT SOLUTION INH ×3 (08:06→19:24)
[2024-03-07] MEDS: ADVAIR HFA 230/21 MCG INHALER 2 PUFF INH ×2 (08:07→19:24)
[2024-03-07] MEDS: WELLBUTRIN XL (24 hour extended release) 150 MG PO (08:40)
[2024-03-07] MEDS: MUCINEX 600 MG PO ×2 (08:40→20:05)
[2024-03-07] MEDS: ZYRTEC 10 MG PO (08:40)
[2024-03-07] MEDS: TESSALON PERLES 200 MG PO ×3 (08:40→21:43)
[2024-03-07] MEDS: MYCELEX TROCHE 10 MG PO ×5 (08:41→21:44)
[2024-03-07] MEDS: DECADRON 4 MG IV (08:41)
[2024-03-07 08:52] LABS: Blood Urea Nitrogen 32 mg/dl (7-17); Calcium 9.3 mg/dl (8.4-10.2); Carbon Dioxide 24 mmol/L (22-30); Chloride 110 mmol/L (98-107); Estimated Creatinine Clearance 83 ml/min; Glucose 111 mg/dl (70-99); Potassium 4.2 mmol/L (3.5-5.1); Sodium 139 mmol/L (135-145); eGFR > 60.00
--- NOTE | 2024-03-07 10:26 | CM ---
Patient seen bedside. CM discussed PT recommendations of outpatient PT vs home PT, will dependent on patients O2 needs, watch for possible home O2. Patient is agreeable to either outpatient PT or home PT. CM will continue to follow for discharge
planning needs.
Plan; home with VN vs outpatient PT, watch for O2 needs.
--- NOTE | 2024-03-07 10:57 | W.PN.HOSP.TC ---
Today's Communication/Plan
-
Check D-dimer
Assessment / Plan
Assessment / Plan
Gen-AAOx3, NAD
HEENT-NC, AT, anicteric, clear oral mm
Neck-supple
CV-reg, no M, +S1/S2
Lungs-decreased breath sounds bilaterally
Abd-soft, NT, ND
Ext-no edema
Musculoskeletal-no cyanosis, clubbing
Skin-warm and dry
Neuro-grossly non-focal
Psych-calm, cooperative
Acute hypoxic respiratory insufficiency -due to acute COPD exacerbation, community-acquired pneumonia. Currently on 2 L nasal cannula. Wean down as able.
Will check high-sensitivity D-dimer.
Acute COPD exacerbation -still with symptoms. Continue Acapella, incentive spirometer, Mucinex, steroids, inhalers. Consider chest vest therapy.
Community-acquired pneumonia -day 4 of 7 for antibiotics.
History of GERD
Patient to follow-up with GI
Seasonal allergies
DVT prophylaxis
Lovenox
Full code
Anticipated Discharge: > 48 hours
Subjective/Interval History
-
Date of Service: March 07, 2024
Patient seen and examined. Complaining of nasal congestion, difficulty getting her phlegm up with coughing. Shortness of breath on exertion.
Objective Data
-
Labs:
Laboratory Results
03/07/24
07:35
WBC 11.2 H
Hgb 12.8
Hct 38.7
Plt Count 253
Sodium 139
Potassium 4.2
Chloride 110 H
Carbon Dioxide 24
BUN 32 H
Creatinine 0.5 L
Glucose 111 H
Calcium 9.3
Vital Signs:
Vital Signs
Temp Pulse Resp BP Pulse Ox
97.5 F 94 24 149/87 92
03/07/24 07:21 03/07/24 08:15 03/07/24 08:15 03/07/24 07:21 03/07/24 08:15
I&O
03/06/24 03/07/24 03/08/24
06:59 06:59 06:59
Intake Total 1420 / 1420 1550 / 1550
Balance 1420 / 1420 1550 / 1550
Review of Systems
-
History Source: Patient
All other systems: Reviewed and negative
[2024-03-07 11:51] LABS: D-Dimer 0.32 ug/mlFEU (0.00-0.50)
[2024-03-07] MEDS: DELTASONE 20 MG PO (12:10)
[2024-03-07 14:39] VITALS: O2SAT 94
[2024-03-07 15:00] VITALS: BP 138/71
[2024-03-07] MEDS: LOVENOX 40 MG SC (16:45)
[2024-03-07] MEDS: ZITHROMAX INFUSION 250 IV (16:45)
[2024-03-07] MEDS: ROCEPHIN 1000 MG IV (16:45)
[2024-03-07] MEDS: STERILE WATER FOR INJECTION 10 ML IV (16:45)
--- NOTE | 2024-03-07 16:56 | W.PN.PUL3 ---
Today's Communication / Plan
-
Continue antibiotics, no change
Add 3% saline
Prednisone 40 mg, continue wean
Chest x-ray in a.m.
Assessment
-
68-year-old woman with history of COPD, severe. Usually follows up with Dr. Foster. Back to the emergency room complaining of shortness of breath and coughing. Found to have left lower lobe pneumonia and bronchospasm. We were consulted on
03/04/2024 for evaluation
Acute exacerbation of COPD
proBNP and cardiac biomarkers negative
Community-acquired pneumonia, LLL
Chest x-ray 03/03/2024: Showed left lower lobe infiltrate.
Sputum culture with NGTD
Chronic exertional dyspnea
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
Admission for acute exacerbation in October 2023
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 On fluticasone/salmeterol (wixela), azithromycin, albuterol
Pulmonary function testing 07/07/2023: Severe airflow obstruction. FEV1 0.81 L - 37% of predicted. FEV1/FVC ratio 35%. Air-trapping RV/TLC ratio 50%. Diffusion capacity is severely reduced at 21%.
Thyroid nodule
Lumpectomy for benign lesion
Former smoker: 40+ pack year history. Quit 10/2023
Assessment and plan:
At this time, patient unfortunately not improving
Although secretions are looser, difficult to expectorate. Patient visibly short of breath with conversation, mild use of accessory muscles
Chest x-ray 03/03 with left lower lobe infiltrate
Moving forward
Will try to ramp up airway clearance
She is already on optimal therapy, Pulmicort, Xopenex/Atrovent, Advair, steroids
We will add 3% saline
Continue ceftriaxone/azithromycin
Okay to slowly wean steroids. No wheezing on exam
Repeat PA/lateral chest x-ray 03/08
Sputum culture shows NGTD
Secretion clearance interventions: Acapella device, increase activity as able.
Continue mucolytics/antitussive.
codeine cough syrup for coughing spells
Deep breathing exercises.
Continue supplemental oxygen. Usually not on oxygen at home.
Wean off as able
Check walking pulse ox prior to discharge
Patient is visibly short of breath with simple conversation
Patient will need radiographic follow-up to document resolution of left lower lobe infiltrate. Based on prior CT chest from 02/2023 there was no abnormality in that area.
May benefit from pulmonary rehabilitation if not provided in the past.
DVT prophylaxis- lovenox
Reviewed with patient, respiratory care
Subjective Data
-
Date of Service:
Date of Service: March 07, 2024
Chief Complaint: Pulmonary Follow Up
Subjective:
Unfortunately, patient is not improving. She complains of nasal congestion, persistent chest congestion, difficult to expectorate. Continues to have shortness of breath, no worse. Denies abdominal pain, nausea, diarrhea
Objective Data
Data Reviewed
Vital Signs / I&O / Oxygen:
Vital Signs
Temp Pulse Resp BP Pulse Ox
97.8 F 111 18 138/71 94
03/07/24 15:00 03/07/24 15:00 03/07/24 15:00 03/07/24 15:00 03/07/24 15:00
Intake and Output
03/06/24 03/07/24 03/08/24
06:59 06:59 06:59
Intake Total 1420 / 1420 1550 / 1550
Balance 1420 / 1420 1550 / 1550
SaO2 94
Nasal Cannula flow liters per 2
minute
Physical Exam
General: Comfortable
HEENT: Normocephalic and Anicteric
Cardiovascular: S1-S2, Regular Rhythm, Murmur (n), Peripheral Edema (Negative) and Other (Normal rate)
Respiratory: Wheeze (Mild), Crackles (n), Rhonchi (Negative), Accessory Resp Muscle Use (Mild with conversation) and Stridor (n)
GI: Soft, Non Distended and Non Tender
Neurology: Awake, Alert and No Motor Deficits (Able to sit up without assistance)
Skin: Warm, Cyanosis (Negative), Jaundice (n) and Rash (n)
Labs/Micro/Reports
Lab Data
03/07/24 07:35
03/07/24 07:35
Microbiology
03/04/24 09:27 Sputum Respiratory Culture - Final
03/04/24 09:27 Sputum Gram Stain - Final
[2024-03-07] MEDS: OCEAN, SALINE MIST 1 SPRAYS NASAL ×2 (18:24→21:45)
[2024-03-07 19:00] VITALS: BP 144/86
[2024-03-07] MEDS: SODIUM CHLORIDE 3% FOR INHALATION 1 VIAL INH (19:24)
[2024-03-07] MEDS: B COMPLEX w/VITAMIN C 1 CAPLET PO (21:43)
[2024-03-07] MEDS: OSCAL 500 + D 500 MG PO (21:43)
[2024-03-07] MEDS: THERAGRAN 1 TABLET PO (21:43)
[2024-03-07] MEDS: SINGULAIR 10 MG PO (22:07)
[2024-03-07 23:00] VITALS: BP 140/83
[2024-03-08 06:35] VITALS: BP 145/89
[2024-03-08] MEDS: ZYRTEC 10 MG PO (07:43)
[2024-03-08] MEDS: WELLBUTRIN XL (24 hour extended release) 150 MG PO (07:43)
[2024-03-08] MEDS: MYCELEX TROCHE 10 MG PO ×4 (07:43→17:38)
[2024-03-08] MEDS: DELTASONE 40 MG PO (07:43)
[2024-03-08] MEDS: MUCINEX 600 MG PO (07:43)
[2024-03-08] MEDS: TESSALON PERLES 200 MG PO ×2 (07:43→16:03)
[2024-03-08] MEDS: OCEAN, SALINE MIST 50 SPRAYS NASAL ×2 (07:44→12:25)
[2024-03-08] MEDS: SODIUM CHLORIDE 3% FOR INHALATION 1 VIAL INH (07:54)
[2024-03-08] MEDS: ATROVENT NEBULES 0.5 MG INH ×2 (07:54→13:58)
[2024-03-08] MEDS: PULMICORT 0.5 MG INH (07:54)
[2024-03-08] MEDS: ADVAIR HFA 230/21 MCG INHALER 2 PUFF INH (07:55)
[2024-03-08] MEDS: XOPENEX 1.25 MG INHALANT SOLUTION INH ×2 (07:55→13:58)
[2024-03-08 08:01] VITALS: BP 150/90
--- NOTE | 2024-03-08 10:00 | W.PN.PUL3 ---
Today's Communication / Plan
-
Check ambulatory saturation
Consider transition to oral antibiotic
Slow taper of prednisone as below
Follow-up in pulmonary office in 2 weeks
Would discharge on 3% saline in addition to outpatient regimen, once a day
Assessment
-
68-year-old woman with history of COPD, severe. Usually follows up with Dr. Foster. Back to the emergency room complaining of shortness of breath and coughing. Found to have left lower lobe pneumonia and bronchospasm. We were consulted on
03/04/2024 for evaluation
Acute exacerbation of COPD
proBNP and cardiac biomarkers negative
Community-acquired pneumonia, LLL
Chest x-ray 03/03/2024: Showed left lower lobe infiltrate.
Sputum culture with NGTD
Chronic exertional dyspnea
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
Admission for acute exacerbation in October 2023
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 On fluticasone/salmeterol (wixela), azithromycin, albuterol
Pulmonary function testing 07/07/2023: Severe airflow obstruction. FEV1 0.81 L - 37% of predicted. FEV1/FVC ratio 35%. Air-trapping RV/TLC ratio 50%. Diffusion capacity is severely reduced at 21%.
Thyroid nodule
Lumpectomy for benign lesion
Former smoker: 40+ pack year history. Quit 10/2023
Assessment and plan:
At this time, patient appears to be slightly improved objectively and subjectively
Less rhonchorous, less wheeze, better air movement on exam
Chest x-ray today shows mild improvement in left lower lobe process
3% saline may be helping somewhat
Moving forward
Continue with supportive care for now
She is already on optimal therapy, Pulmicort, Xopenex/Atrovent, Advair, steroids
Would continue 3% saline daily at home
Continue ceftriaxone/azithromycin. Consider transition to oral antibiotic
Okay to slowly wean steroids. No wheezing on exam
Wean by 10 mg every 5 days
Sputum culture shows NGTD
Secretion clearance interventions: Acapella device, increase activity as able.
Continue mucolytics/antitussive.
codeine cough syrup for coughing spells
Deep breathing exercises.
Continue supplemental oxygen. Usually not on oxygen at home.
Check ambulatory saturation. Reviewed with nursing
Patient appears to be less short of breath with conversation
Patient will need radiographic follow-up to document resolution of left lower lobe infiltrate. Based on prior CT chest from 02/2023 there was no abnormality in that area.
May benefit from pulmonary rehabilitation if not provided in the past.
DVT prophylaxis- lovenox
Reviewed with patient, nursing and primary service
Disposition efforts. Hope for possible discharge within 24 hours
Subjective Data
-
Date of Service:
Date of Service: March 08, 2024
Chief Complaint: Pulmonary Follow Up
Subjective:
Patient still with shortness of breath and cough but appears to be slightly improved. Observed ambulating in the childress without difficulty, talking on the phone. Denies nausea, abdominal pain. Off oxygen
Objective Data
Data Reviewed
Vital Signs / I&O / Oxygen:
Vital Signs
Temp Pulse Resp BP Pulse Ox
97.6 F 90 18 150/90 93
03/08/24 08:01 03/08/24 08:01 03/08/24 08:01 03/08/24 08:01 03/08/24 08:02
Intake and Output
03/07/24 03/08/24 03/09/24
06:59 06:59 06:59
Intake Total 1550 / 1550
Balance 1550 / 1550
SaO2 93
Nasal Cannula flow liters per 2
minute
Physical Exam
General: Comfortable
HEENT: Normocephalic and Anicteric
Cardiovascular: S1-S2, Regular Rhythm, Murmur (n), Peripheral Edema (Negative) and Other (Normal rate)
Respiratory: Wheeze (no), Crackles (n), Rhonchi (Negative), Non-Labored Respirations and Stridor (n)
GI: Soft, Non Distended and Non Tender
Neurology: Awake, Alert and No Motor Deficits (Able to sit up without assistance)
Skin: Warm, Cyanosis (Negative), Jaundice (n) and Rash (n)
Labs/Micro/Reports
Lab Data
03/07/24 07:35
03/07/24 07:35
--- NOTE | 2024-03-08 10:52 | W.PN.HOSP.TC ---
Addendum entered and electronically signed by Ted Anne DO 03/08/24 13:53:
Patient is in need of oxygen on exertion due to pulse oximetry of 91% on room air at rest; 87% on room air with exertion.
Patient was placed on 2L O2 via nasal cannula with saturation of 91%. Oxygen will help to improve hypoxemia.
Patient is mobile within the home. Albuterol therapy has been discussed and is ineffective in treating hypoxemia-related symptoms.
Oxygen will improve the patient's symptoms.
Original Note:
Today's Communication/Plan
-
Ambulatory pulse ox on room air
Discharge
Assessment / Plan
Assessment / Plan
Gen-AAOx3, NAD
HEENT-NC, AT, anicteric, clear oral mm
Neck-supple
CV-reg, no M, +S1/S2
Lungs-decreased breath sounds bilaterally
Abd-soft, NT, ND
Ext-no edema
Musculoskeletal-no cyanosis, clubbing
Skin-warm and dry
Neuro-grossly non-focal
Psych-calm, cooperative
Acute hypoxic respiratory insufficiency -due to acute COPD exacerbation, community-acquired pneumonia. Off oxygen currently. Check ambulatory pulse ox on room air. D-dimer noted to be normal.
Acute COPD exacerbation -improving symptoms. Continue Acapella, incentive spirometer, Mucinex, steroids, inhalers. Plan to discharge with 3% saline nebs per pulmonary. Outpatient follow-up with Dr. Foster.
Community-acquired pneumonia -day 5 of 7 for antibiotics.
History of GERD
Patient to follow-up with GI
Seasonal allergies
DVT prophylaxis
Lovenox
Full code
Dispo -medically stable for discharge today.
32 minutes spent in discharge process.
Anticipated Discharge: Today
Subjective/Interval History
-
Date of Service: March 08, 2024
Patient seen and examined. Feeling better today. No complaints.
Objective Data
-
Vital Signs:
Vital Signs
Temp Pulse Resp BP Pulse Ox
97.6 F 90 18 150/90 93
03/08/24 08:01 03/08/24 08:01 03/08/24 08:01 03/08/24 08:01 03/08/24 08:02
I&O
03/07/24 03/08/24 03/09/24
06:59 06:59 06:59
Intake Total 1550 / 1550
Balance 1550 / 1550
Review of Systems
-
History Source: Patient
All other systems: Reviewed and negative
--- NOTE | 2024-03-08 11:02 | W.DS.TRANS ---
DC Summary - Obstetrics Nurse
-
Discharge Instructions:
Discharge Diagnosis/Procedures COPD exacerbation, pneumonia
Diet Regular
Activity As tolerated
Driving Restrictions As prior to admission
Bathing Restrictions None
Instructions:
Stand-Alone Forms:
Changes to Home Medications: No
Discharge Medications:
DC Medications w/original date entered in [id number]
montelukast 10 mg tablet 10 mg PO HS ASTHMA 05/11/20
benzonatate 200 mg capsule 200 mg PO TID PRN cough 10/22/23
budesonide 0.5 mg/2 mL suspension for nebulization 0.5 mg inhalation R BID Lung/Breathing Issues 10/22/23
calcium carbonate 600 mg-vitamin D3 5 mcg (200 unit) tablet (Calcium 600 + D(3)) 1 tab PO HS Supplement 10/22/23
cetirizine 10 mg tablet 10 mg PO DAILY Allergies 10/22/23
fluticasone 500 mcg-salmeterol 50 mcg/dose blistr powdr for inhalation (Wixela Inhub) 1 inh inhalation R BID Lung/Breathing Issues 10/22/23
guaifenesin 600 mg tablet, extended release 12 hr (Mucinex) 600 mg PO BID Cough 10/22/23
multivitamin 1 tab PO HS Supplement 10/22/23
vitamin B complex 1 tab PO HS Supplement 10/22/23
bupropion HCl 150 mg 24 hr tablet, extended release 150 mg PO DAILY Mental Health/Anxiety 03/03/24
clotrimazole 10 mg mark 10 mg mucous membrane 5/D 03/03/24
famotidine 20 mg tablet 20 mg PO BID PRN heartburn/acid reflux 03/03/24
ipratropium 0.5 mg-albuterol 3 mg (2.5 mg base)/3 mL nebulization soln 3 ml inhalation R TID Lung/Breathing Issues 03/03/24
cefpodoxime 200 mg tablet 200 mg PO BID #4 tabs 03/08/24
ipratropium bromide 0.02 % solution for inhalation 0.5 mg (2.5 mL) inhalation R Q6HPRN PRN sob or wheezing #150 mL 03/08/24
prednisone 10 mg tablet 10 mg PO DIRECTED #50 tabs 03/08/24
sodium chloride 0.65 % nasal spray aerosol (Saline Nasal) 2 spray intranasal QID #44 mL 03/08/24
sodium chloride 3 % for nebulization (NebuSal) 4 ml inhalation R DAILY #120 mL 03/08/24
Home Medication Changes
Pending Results: No
[2024-03-08 12:54] VITALS: BP 145/82
--- NOTE | 2024-03-08 14:14 | CM ---
CM reviewed chart and noted dc order
Pt qualifies for home O2
Bedside meeting with pt to discuss dc planning
DME providers discussed- referral made to [facility] for home O2
VN vs outpt discussed, pt prefers outpatient
Script provided by Dr Anne and placed on chart
IMM verbally reviewed- copy provided
Of note, pt requested a smaller home O2 set up, ex. [facility]
Per [facility], pt does not qualify on hospital dc, only eligible for standard set up
Will need to be first evaled by pulm and set up by outpt pulm
Update to pt
[facility] to deliver portable bedside approx [id number]
Discharge Disposition- home with outpt PT/OT and new home O2 [facility]
[2024-03-08] MEDS: ROCEPHIN 1000 MG IV (16:03)
[2024-03-08] MEDS: STERILE WATER FOR INJECTION 10 ML IV (16:04)
[2024-03-08 16:37] VITALS: BP 131/83
[2024-03-08] MEDS: LOVENOX 40 MG SC (17:38)
[2024-03-08] MEDS: OCEAN, SALINE MIST NASAL (17:39)
== END 2024-03-08 18:55 | disposition home or self-care (01) | DRG 190 ==
LOC: 4 WEST ACU 16:21
PROVIDERS: ADMITTING PHYSICIAN Internal Medicine; ATTENDING PHYSICIAN Hospitalist; CONSULT PHYSICIAN Internal Medicine Critical Care Medicine; EMERGENCY PHYSICIAN Emergency Medicine; FAMILY PHYSICIAN Internal Medicine
DX: J44.1 Chronic obstructive pulmonary disease with (acute) exacerbation (principal); J18.9 Pneumonia, unspecified organism; F17.200 Nicotine dependence, unspecified, uncomplicated; J44.0 Chronic obstructive pulmonary disease with (acute) lower respiratory infection; R09.02 Hypoxemia; R06.89 Other abnormalities of breathing; Z11.52 Encounter for screening for COVID-19
CPT/HCPCS: 71046; 80048; 83735; 83880; 84484; 85025; 85379; 86803; 87205; 87811; 93005; 94640; 96374; 97162; 97530; 99285; 99406

== ENCOUNTER 2024-03-23 00:36 | Inpatient (IN) | payer OTHER, SELFPAY ==
[2024-03-22 22:20] VITALS: BP 141/91
[2024-03-22 22:37] LABS: % Basophils 0.3 % (0-2); % Eosinophils 1.2 % (0-6); % Immature Granulocytes 0.7 % (0-0.5); % Lymphocytes 12.4 % (20.5-51.1); % Neutrophils 79.4 % (42.2-75.2); Absolute Eosinophils 0.1 10^3/uL (0-0.7); Absolute Immature Granulocytes 0.1 10^3/uL (0-0.05); Absolute Lymphocytes 1.2 10^3/uL (1.2-3.4); Absolute Monocytes 0.6 10^3/uL (0.1-0.6); Absolute Neutrophils 7.8 10^3/uL (1.4-6.5); Hematocrit 39.6 % (37.0-47.0); Hemoglobin 13.8 g/dL (12.0-16.0); Mean Corp Hgb Conc. 34.8 g/dL (33.0-37.0); Mean Corpuscular Hgb 32.2 pg (27.0-31.0); Mean Corpuscular Volume 92.3 fL (81.0-99.0); Mean Platelet Volume 9.1 fL (7.4-10.4); Nucleated Red Blood Cells % 0 %; Platelet Count 242 10^3/uL (130-400); Red Blood Cell Count 4.29 10^6/uL (4.20-5.40); Red Cell Dist. Width 12.8 % (11.5-14.5); White Blood Cell Count 9.8 10^3/uL (4.8-10.8)
[2024-03-22 22:53] LABS: ALT (SGPT) 22 U/L (0-35); AST (SGOT) 26 U/L (14-36); Albumin 3.7 g/dl (3.5-5.0); Alkaline Phosphatase 124 U/L (38-126); Blood Urea Nitrogen 25 mg/dl (7-17); Calcium 9.9 mg/dl (8.4-10.2); Carbon Dioxide 29 mmol/L (22-30); Chloride 104 mmol/L (98-107); Glucose 102 mg/dl (70-99); Sodium 137 mmol/L (135-145); Total Bilirubin 0.4 mg/dl (0.2-1.3); Total Protein 6.3 g/dl (6.3-8.2); eGFR > 60.00
[2024-03-22 23:03] LABS: NT-proBNP 476 pg/ml; Troponin I 0.911 ng/ml
[2024-03-22 23:05] VITALS: BP 140/83
[2024-03-22 23:11] VITALS: BMI 21.4
--- NOTE | 2024-03-22 23:13 | ED.GENMED ---
History of Present Illness
General
Chief Complaint: Chest Pain
Source: patient
Exam Limitations: none
Time Seen by Provider: 03/22/24 23:05
Nursing documentation reviewed up to this point in time: agreed with
Travel History
Have you had any contact with someone who has COVID-19?: No
Do you have any symptoms of coronavirus? Fever > 100 degrees, chills, cough, shortness of breath, sore throat, loss of taste or smell, muscle aches, or headache?: Yes
Symptoms:: sob
History of Present Illness
History of Present Illness:
68-year-old female oxygen dependent COPD admitted about 2 weeks ago COPD pneumonia finishing up her steroids a week ago had some chest pain got better with NSAIDs, has chronic shortness of breath dyspnea on exertion, tonight developed chest pressure
for around 7 PM radiation to her bilateral arms to her bilateral arms, no fevers has had some cough, feels some wheezing in her chest and crackles, no leg edema never had any heart disease never had a PE, has never seen a deputy chief executive
Past History
Past History
ED Past Medical History: Asthma and COPD; Negative HTN, Hypercholesterolemia or NIDDM
ED Past Surgical History: None
Social History
Tobacco: Smoker
Alcohol: None
Drug: None
Personal: Single
Living: with family
Phy Exam
Physical Exam
Physical Exam:
Physical Exam
General: Chronically ill female not
Neck: No jaundice
Heart: Regular
Lungs: Crackles right base
Abdomen: Nontender
Neuro: alert and oriented. no focal neurological deficits
Skin: no rash
Psychiatric: well kept. interactive and cooperative
Extremities: no edema. no calf tendernes
Scores
Heart Score for Chest Pain Patients
STEMI patient?: No
History: Moderately Suspicious
ECG: Nonspecific Repolarization
Age: >45 - <65 years
Risk Factors: 1 or 2 Risk Factors
Troponin: </= Normal Limit
Heart Score for Chest Pain Patients: 4
Heart Score Risk: 20.3% MACE over next 6 weeks
Course
Orders/Labs/Results
Orders:
Orders
03/22/24 22:20
Electrocardiogram (*1) Urgent
Reason for Study: Other
Other Reason for Exam: Respiratory Distress
Cardiac Monitoring- Treatment ONCE
IV Insert/Care/Rem.- Treatment PRN
O2 Therapy [RESP] Urgent
Titrate/Wean O2 to maintain O2 sat greater than (%): 93
Special Instructions: TO MAINTAIN CONTINUOUS O2 SATS >/= 93%
Pulse Ox/cont/shift [RESP] Urgent
Quantity: 1
Special Instructions: continuous pulse ox
03/22/24 22:31
Complete Blood Count/With Diff Urgent
Comprehensive Metabolic Panel Urgent
NT-proBNP Urgent
Troponin I Urgent
03/22/24 23:12
Aspirin 325 mg PO NOW STA
03/22/24 23:13
CT Chest Pe Study Urgent
Comment:
Reason For Exam: sob
03/22/24 23:49
PTT Urgent
03/23/24 00:12
Heparin 3,500 units IV NOW STA
03/23/24 00:15
Heparin 85844 Units/250 ml 25,000 units in 250 ml IV PER PROTOCOL
Weight to be used for heparin protocol in kilograms (kg):: 58.3
Protocol:: Cardiac Tx/Acute Coronary
PTT Goal Range to be used:: PTT 73 to 111 seconds
Order type:: Initial
INITIAL Infusion Dose (UNITS/KG/hr) & then follow protocol:: 12 units/kg/hr
Infusion Dose in UNITS/hr & then follow protocol (UNITS/hr):: 700
INFUSION RATE in mL/hr & then follow protocol (mL/hr):: 7
PTT less than or equal to 64 seconds:: Increase rate by 200 units/hr (+ 2 mL/hr)
PTT 64.1 to 72.9 seconds:: Increase rate by 100 units/hr (+ 1 mL/hr)
PTT 73 to 111 seconds:: Target Range. No change in rate.
PTT 111.1 to 130.9 seconds:: Decrease rate by 100 units/hr (- 1 mL/hr)
PTT 131 to 199.9 seconds:: HOLD for 1 hr. Then decrease rate by 200 units/hr (- 2 mL/hr)
PTT greater than or equal to 200 seconds:: HOLD for 2 hrs & Notify Provider. Then decrease by 200 units/hr (-
2 mL/hr)
Lab follow-up:: Each change, PTT q6h until 2 consecutive are therapeutic. Then PTT
daily.
03/23/24 00:21
Troponin I Urgent
03/23/24 00:26
Admit/Transfer Patient As Directed
Co-Sign Provider:
Level of Care: Inpatient admission
Assign to:: Telemetry
Physician / Group: Mar Gray - linhists
Diagnosis: Chest pain, elevated troponin
Reason for Telemetry: Chest Pain syndromes
Date to Stop Telemetry: 03/25/24
Time to Stop Telemetry: 11:00
Reason for Hospitalization: IV heparin, cards eval
Expected length of stay greater than two midnights?: Yes
ELOS- Estimated Length of Stay in days: 3
I certify the patient meets the requirements for IP care: Yes
03/23/24 00:29
Code Status As Directed
Resuscitation Status: Full Code
03/23/24 00:40
Acetaminophen [Tylenol] 650 mg PO Q4HPRN PRN
Bisacodyl [Dulcolax] 10 mg RECTAL [id number] PRN
Docusate W/Senna [Senokot-S] 1 tablet PO BIDPRN PRN
Famotidine [Pepcid] 20 mg PO BIDPRN PRN
Ipratropium Nebs [Atrovent Nebules] 0.5 mg INH R Q6HPRN PRN
Morphine Sulfate 2 mg IV Q4HPRN PRN
Ondansetron Injectable [Zofran] 4 mg IV Q6HPRN PRN
Oxycodone [Roxicodone] 5 mg PO Q4HPRN PRN
Polyethylene Glycol Powder [Miralax] 17 grams PO DAILYPRN PRN
03/23/24 00:40
Echo 2D MMode Color/Doppler Routine
Reason for Study: chest pain, trop elevation
CARDIOLOGY CONSULT Routine
Consulting Provider: Timothy Falk
Was physician already notified: Yes
Activity As Directed
Activity Level: As Tolerated
Intake/ Output As Directed
Frequency: q12h
Vital Signs As Directed
Frequency: Per unit guidelines
Weight As Directed
Frequency: Daily
Rx Incentive Spirometry [RESP] Routine
Frequency: q1h while awake
03/23/24 00:46
Benzonatate [Tessalon Perles] 200 mg PO TIDPRN PRN
03/23/24 01:00
Prednisone [Deltasone] 10 mg PO DIRECTED
03/23/24 05:58
Basic Metabolic Panel IN AM
Cardiovascular Evaluation IN AM
Complete Blood Count/No Diff IN AM
Troponin I Q8H
03/23/24 06:00
Electrocardiogram (*1) IN AM
Reason for Study: Chest Pain
03/23/24 08:00
Budesonide [Pulmicort] 0.5 mg INH R BID
Bupropion(24Hr)Extended Releas [WELLBUTRIN XL (24 hour extended release)] 150 mg PO DAILY
Cetirizine HCl [Zyrtec] 10 mg PO DAILY
Clotrimazole [Mycelex Rosaura] 10 mg PO 5/D
Fluticasone/Salmeterol 230/21 [Advair Hfa 230/21 Mcg Inhaler] 2 puff INH R BID
Guaifenesin [Mucinex] 600 mg PO BID
Ipratropium/Albuterol Sulfate [Duoneb] 3 ml INH R TID
Sodium Chloride 3% INH [Sodium Chloride 3% For Inhalation] 1 vial INH R DAILY
Sodium Chloride [[place], Saline Mist] See Dose Instructions NASAL QID
03/23/24 12:34
Troponin I Q8H
03/23/24 22:00
Montelukast Sodium [Singulair] 10 mg PO HS
Multivitamin [Theragran] 1 tablet PO HS
Vitamin B Complex with C [B COMPLEX w/VITAMIN C] 1 caplet PO HS
03/25/24 11:00
DC Protocol for Telemetry ONCE
Abnormal Lab Results
03/22/24 03/23/24
22:31 00:21
MCH 32.2 H pg
(27.0-31.0)
Abs Immat Gran (auto) 0.1 H 10^3/uL
(0-0.05)
Absolute Neuts (auto) 7.8 H 10^3/uL
(1.4-6.5)
Immature Gran % 0.7 H %
(0-0.5)
Neutrophils % 79.4 H %
(42.2-75.2)
Lymphocytes % 12.4 L %
(20.5-51.1)
BUN 25 H mg/dl
(7-17)
Glucose 102 H mg/dl
(70-99)
Troponin I 0.911 H* ng/ml 1.350 H* D ng/ml
03/22/24 22:31
03/22/24 22:31
Vital Signs
Initial and Last Documented VS:
Initial Vital Signs
Temp Pulse Resp BP Pulse Ox
97.8 F 103 20 141/91 92
03/22/24 22:20 03/22/24 22:20 03/22/24 22:20 03/22/24 22:20 03/22/24 22:20
Last Documented Vital Signs
Temp Pulse Resp BP Pulse Ox
98.3 F 100 20 110/60 90
03/24/24 11:10 03/24/24 11:10 03/24/24 11:10 03/24/24 11:10 03/24/24 11:10
MDM/Problems Addressed
Differential Diagnosis Includes:
ACS PE pneumonia pleurisy pericarditis less likely dissection
MDM/Problems Addressed:
Chest pain shortness of breath
Chronic conditions affecting care:
COPD
Acute Exacerbation and/or Progression of Chronic Illness: COPD
*Radiology
Radiology exam reviewed: preliminary read by ED provider
*Pulse Oximetry
Patient hypoxic: yes
*EKG
Interpreted by ED Provider?: Yes
Interpretation: abnormal
Comparison EKG: no comparison EKG present
Heart Rate: 78
Rate: normal
Rhythm: sinus
Ischemia: non-specific ST changes
*Fiber Glass Worker Interpretation
Rate: normal
Interpretation: normal
Heart Rate: 78
*Critical Care Note
Total Time (30-74mins, 75-104mins- exclusive of procedures): 30
Update Note
Update Note:
12:[address] noted report noted no dissection no PE will trend her troponin, started on unfractionated heparin
ED Attending Note
-
Portions of this chart may have been created with voice recognition software.� Occasional wrong word or��sound alike� substitutions may have occurred due to the inherent limitations of voice recognition software.
Discharge Plan
Departure
Patient Disposition: Admit
Date of Disposition: 03/23/24
Time of Disposition: 00:13
Admit to: IVU
Presentation/result/management discussed w/ accepting MD/DO: Hospitalist
Patient with high blood pressure during this ER visit?: No
Condition: Fair
Discharge Problem:
ACS (acute coronary syndrome)
Interventions
Interventions:
*Risk Screen - Suicide Last Done: 03/22/24 22:26
*General Assessment Last Done: 03/22/24 22:26
*Neglect/Abuse Screening Last Done: 03/22/24 22:26
ED- Fall Risk Assessment Last Done: 03/22/24 22:26
*ED COVID-19 Vaccine History Last Done: 03/22/24 22:26
*Nursing Disposition Last Done: 03/23/24 00:57
ED- Cardiac Assessment Last Done: 03/22/24 23:05
Discharge Date and Time
Discharge Date/Time: 03/23/24 00:57
[2024-03-22] MEDS: ASPIRIN 325 MG PO (23:56)
[2024-03-23] VITALS (16 sets, daily range): BP systolic 109–172; BP diastolic 57–99; BMI 19.9
[2024-03-23] MEDS: HEPARIN 3500 UNITS IV (00:33)
--- NOTE | 2024-03-23 00:38 | HPS.HSE ---
Family Physician
-
Family Physician: Kirsty Mae
Chief Complaint
-
chest pain
History of Present Illness
68 y/o F, chronic hx of smoking, recent admission for PNA completed Abx, finishing steroids presents to ER with chest pain. She described it initially as bilateral arm pain then moved to central chest. did not radiate from there. 06/18. dull/ache
like. massaging chest/arms did not help. Aleve did not help. No associated SOB/cough/fever/chills/palpitations. no Prior hx of cardiac issues or chest pain.
in ER, initially trop elevated and patient started ASA/Heparin and admitted.
Medical History
Past Medical History
Past Medical History: Reports Other (GERD, allergies, COPD)
Past Surgical History: Reports Other (Lumpectomy, skin lesion excision))
Social History
Tobacco: Former Smoker
Alcohol: None
Drug: None
Family History
Family History: Not pertinent
Allergies / Home Medications
Allergies reflects when Allergies were last updated in [employer].
Home Medications with original date entered in [employer]
Allergy/Medication List:
Allergies
Allergy/AdvReac Type Severity Reaction Status Date / Time
[facility] Allergy Rash Verified 03/22/24 22:20
Home Medications
montelukast 10 mg tablet 10 mg PO HS ASTHMA 05/11/20
benzonatate 200 mg capsule 200 mg PO TID PRN cough 10/22/23
budesonide 0.5 mg/2 mL suspension for nebulization 0.5 mg inhalation R BID Lung/Breathing Issues 10/22/23
calcium carbonate 600 mg-vitamin D3 5 mcg (200 unit) tablet (Calcium 600 + D(3)) 1 tab PO HS Supplement 10/22/23
cetirizine 10 mg tablet 10 mg PO DAILY Allergies 10/22/23
fluticasone 500 mcg-salmeterol 50 mcg/dose blistr powdr for inhalation (Wixela Inhub) 1 inh inhalation R BID Lung/Breathing Issues 10/22/23
guaifenesin 600 mg tablet, extended release 12 hr (Mucinex) 600 mg PO BID Cough 10/22/23
multivitamin 1 tab PO HS Supplement 10/22/23
vitamin B complex 1 tab PO HS Supplement 10/22/23
bupropion HCl 150 mg 24 hr tablet, extended release 150 mg PO DAILY Mental Health/Anxiety 03/03/24
clotrimazole 10 mg mark 10 mg mucous membrane 5/D 03/03/24
famotidine 20 mg tablet 20 mg PO BID PRN heartburn/acid reflux 03/03/24
ipratropium 0.5 mg-albuterol 3 mg (2.5 mg base)/3 mL nebulization soln 3 ml inhalation R TID Lung/Breathing Issues 03/03/24
ipratropium bromide 0.02 % solution for inhalation 0.5 mg (2.5 mL) inhalation R Q6HPRN PRN sob or wheezing #150 mL 03/08/24
prednisone 10 mg tablet 10 mg PO DIRECTED #50 tabs 03/08/24
sodium chloride 0.65 % nasal spray aerosol (Saline Nasal) 2 spray intranasal QID #44 mL 03/08/24
sodium chloride 3 % for nebulization (NebuSal) 4 ml inhalation R DAILY #120 mL 03/08/24
azithromycin 250 mg tablet 250 mg PO DAILY 03/22/24
Review of Systems
-
A 12 point ROS was completed and negative except as noted: Yes
Physical Exam
Vital Signs
Vital Signs
Temp Pulse Resp BP Pulse Ox
97.8 F 94 28 140/83 96
03/22/24 22:20 03/22/24 23:05 03/22/24 23:05 03/22/24 23:05 03/22/24 23:05
Physical Exam
General: No Apparent Distress
HEENT: NormoCephalic and Anicteric
Respiratory: Wheezes (faint); No Rhonchi
Cardiac: S1/S2 and Regular Rhythm
GI: Soft
Neuro: AO x 3
Hematologic/Lymphatic: No Lymphadenopathy
Psych: Calm
Laboratory Results
-
03/22/24 22:31
03/22/24 22:31
Laboratory Results
APTT 33.0 Sec (23.4-35.0) 03/22/24 23:49
Total Bilirubin 0.4 mg/dl (0.2-1.3) 03/22/24 22:31
AST 26 U/L (14-36) 03/22/24 22:31
ALT 22 U/L (0-35) 03/22/24 22:31
Alkaline Phosphatase 124 U/L (38-126) 03/22/24 22:31
Troponin I 0.911 ng/ml H* 03/22/24 22:31
Data Reviewed
-
Lab Data: Labs Reviewed by me
Impression/Plan
-
Assessment:
Chest pain
suspect evolving CT/NSTEMI
- initial trop .911; trend
- AM EKG
- tele
- Echo
- ASA loaded
- IV Heparin now; follow PTT
- prn nitro
- CBC cards consulted
Recent admission for CAP, AECOPD
- finish Abx
- remains on O2 setup last admission
- finish steroid taper (10mg x 3 days left)
GERD - continue H2 cruz
Seasonal allergies
DVT ppx: IV heparin
Code: Full
[2024-03-23] MEDS: HEPARIN 25000 UNITS/250 ML IV (00:41)
--- NOTE | 2024-03-23 04:26 | PTCARENOTE ---
Received pt from the ED via stretcher at 0100. Pt ambulated independently into the room, mild CORRALES but recovering quickly. Pt arrives on 2L O2 which pt states is chronic since her recent d/c, pt increased to 4L after ambulating to the bathroom, but
turned back down to 3L O2 after settling in bed. AAOx3, lungs coarse at the bases, crackles to the R base, see full assessment in flow sheet. Placed on telemetry per order. Orders reviewed, most recent troponin drawn 0015 in the ED, associated EKG
incomplete. D/w covering MATERIAL CONTROL ASSOCIATE, additional EKG not needed at this time as pt is due for repeat EKG and troponin at 0600. Pt arrives with heparin gtt infusing at 700units/hr, per order, repeat PTT ordered for 0645. Pt NPO currently, made aware of POC.
Pt oriented to unit and call damon, resting comfortably in bed.
--- NOTE | 2024-03-23 04:44 | DOWNTIME ---
There was a [employer] Client Buggy Runner Downtime on 03/22/2024 from 0100 to 03/23/2024 at 0300. Downtime documentation of patient's care, including medication administrations, has been reconciled in the electronic record per guidelines. Refer to the
patient's paper chart under the miscellaneous tab to see printed paper medication records and downtime forms.
[2024-03-23 06:11] LABS: Hematocrit 39.9 % (37.0-47.0); Hemoglobin 13.5 g/dL (12.0-16.0); Mean Corp Hgb Conc. 33.8 g/dL (33.0-37.0); Mean Corpuscular Volume 94.5 fL (81.0-99.0); Mean Platelet Volume 9.4 fL (7.4-10.4); Platelet Count 244 10^3/uL (130-400); Red Blood Cell Count 4.22 10^6/uL (4.20-5.40); Red Cell Dist. Width 12.7 % (11.5-14.5); White Blood Cell Count 9.3 10^3/uL (4.8-10.8)
[2024-03-23] MEDS: TOPROL XL 25 MG PO (06:13)
[2024-03-23 06:22] LABS: APTT 62.3 Sec (23.4-35.0)
[2024-03-23 06:38] LABS: Blood Urea Nitrogen 20 mg/dl (7-17); Carbon Dioxide 28 mmol/L (22-30); Chloride 106 mmol/L (98-107); Estimated Creatinine Clearance 69 ml/min; Glucose 86 mg/dl (70-99); HDL Cholesterol 78 mg/dl; LDL Cholesterol, Calculated 121 mg/dl; Potassium 3.6 mmol/L (3.5-5.1); Sodium 138 mmol/L (135-145); Total Cholesterol 219 mg/dl (50-199); Triglyceride 104 mg/dl (10-149); Very Low Density Lipoprotein 20 mg/dl (0-30); eGFR > 60.00
[2024-03-23] MEDS: PULMICORT 0.5 MG INH ×2 (07:36→19:22)
[2024-03-23] MEDS: ADVAIR HFA 230/21 MCG INHALER 2 PUFF INH ×2 (07:36→19:23)
[2024-03-23] MEDS: SODIUM CHLORIDE 3% FOR INHALATION 1 VIAL INH (07:36)
[2024-03-23] MEDS: DUONEB 3 ML INH ×2 (07:36→19:22)
--- NOTE | 2024-03-23 08:36 | PTCARENOTE ---
Report called to film laboratory technician dept. Patient currently off the floor for an echo. Vitals stable this morning, no complaints of chest pain on assessment.
[2024-03-23] MEDS: WELLBUTRIN XL (24 hour extended release) 150 MG PO (09:27)
[2024-03-23] MEDS: DELTASONE 10 MG PO (09:27)
[2024-03-23] MEDS: MUCINEX 600 MG PO ×2 (09:27→21:29)
[2024-03-23] MEDS: LOW STRENGTH ASPIRIN 81 MG PO (09:27)
[2024-03-23] MEDS: ZYRTEC 10 MG PO (09:27)
[2024-03-23] MEDS: MYCELEX TROCHE 10 MG PO (09:27)
[2024-03-23] MEDS: TYLENOL 650 MG PO ×2 (09:31→14:23)
--- NOTE | 2024-03-23 09:38 | CON.CAR ---
Consultation
Consultation Request
Date/Time Consultation Requested: March 23, 2024
Date/Time Consultation Performed: March 23, 2024
Requesting Provider: hospitalist
Performing Provider: Juan Antonio Brewster
Reason for Consultation: chest pain
Medical History
-
Chief Complaint: chest pain
History of Present Illness:
68-year-old female with history of smoking recently quit in October 2023, pneumonia, GERD and COPD who is here today for chest pain. She tells me that the initial bout of chest pain was on Thursday. She took a couple of Aleve and then went to bed.
It then resolved. However, yesterday she was sitting watching television when again she had chest pain some associated shortness of breath that was mild with radiation down both of her arms. It was dull and aching. She decided to come to the
emergency room because of these 2 occurrences of chest pain. She has no prior history of CAD.
In the emergency room initial Trope was elevated and she was started on aspirin and heparin and admitted. She is currently chest pain-free
Social History
Tobacco: Former Smoker
Alcohol: None
Drug: None
Personal: Single
Living: Alone
Family History
Family History: Reviewed & Not Pertinent
Allergies / Home Medications
Allergy/AdvReac Type Severity Reaction Status Date / Time
[facility] Allergy Rash Verified 03/22/24 22:20
�Medication �Instructions �Recorded �Confirmed �Type
montelukast 10 mg tablet 10 mg PO HS ASTHMA 05/11/20 03/22/24 History
benzonatate 200 mg capsule 200 mg PO TID PRN cough 10/22/23 03/22/24 History
budesonide 0.5 mg/2 mL suspension 0.5 mg inhalation R BID 10/22/23 03/22/24 History
for nebulization Lung/Breathing Issues
calcium carbonate 600 mg-vitamin 1 tab PO HS Supplement 10/22/23 03/22/24 History
D3 5 mcg (200 unit) tablet
(Calcium 600 + D(3))
cetirizine 10 mg tablet 10 mg PO DAILY Allergies 10/22/23 03/22/24 History
fluticasone 500 mcg-salmeterol 50 1 inh inhalation R BID 10/22/23 03/22/24 History
mcg/dose blistr powdr for Lung/Breathing Issues
inhalation (Wixela Inhub)
guaifenesin 600 mg tablet, 600 mg PO BID Cough 10/22/23 03/22/24 History
extended release 12 hr (Mucinex)
multivitamin 1 tab PO HS Supplement 10/22/23 03/22/24 History
vitamin B complex 1 tab PO HS Supplement 10/22/23 03/22/24 History
bupropion HCl 150 mg 24 hr tablet, 150 mg PO DAILY Mental 03/03/24 03/22/24 History
extended release Health/Anxiety
clotrimazole 10 mg mark 10 mg mucous membrane 5/D 03/03/24 03/22/24 History
famotidine 20 mg tablet 20 mg PO BID PRN heartburn/acid 03/03/24 03/22/24 History
reflux
ipratropium 0.5 mg-albuterol 3 mg 3 ml inhalation R TID 03/03/24 03/22/24 History
(2.5 mg base)/3 mL nebulization Lung/Breathing Issues
soln
ipratropium bromide 0.02 % 0.5 mg (2.5 mL) inhalation R 03/08/24 03/22/24 Rx
solution for inhalation Q6HPRN PRN sob or wheezing #150 mL
prednisone 10 mg tablet 10 mg PO DIRECTED #50 tabs 03/08/24 03/22/24 Rx
sodium chloride 0.65 % nasal spray 2 spray intranasal QID #44 mL 03/08/24 03/22/24 Rx
aerosol (Saline Nasal)
sodium chloride 3 % for 4 ml inhalation R DAILY #120 mL 03/08/24 03/22/24 Rx
nebulization (NebuSal)
azithromycin 250 mg tablet 250 mg PO DAILY 03/22/24 History
Review of Systems
-
All other systems: Negative unless noted
Physical Exam
Vital Signs
Temp Pulse Resp BP Pulse Ox
98.1 F 84 15 133/92 97
03/23/24 07:25 03/23/24 07:40 03/23/24 07:40 03/23/24 07:25 03/23/24 07:40
Lab Results
03/23/24 05:58
03/23/24 05:58
Troponin I 2.110 ng/ml H* D 03/23/24 05:58
Esc-C-Lbyxaquofgr Pept 476 pg/ml 03/22/24 22:31
Physical Exam
General: Well Developed and Well Nourished
HEENT: Normocephalic and Moist Mucous Membranes
Respiratory: Clear and Non Labored Respirations
Cardiac: Regular Rhythm
GI: Soft and Non Tender
Musculoskeletal: No Clubbing, No Cyanosis and No Edema
Skin: Warm and Dry
Neuro: AO x 3
Hematologic/Lymphatic: No Lymphadenopathy
Psych: Calm
Impression / Plan
-
68-year-old female with history of smoking recently quit in October 2023, pneumonia, GERD and COPD who is here today for chest pain. Given her elevated troponins and chest pain this is likely an NSTEMI.
NSTEMI
-Heparin drip aspirin statin Cylinder Checker later today
-Will adjust blood pressure meds going forward
-Echocardiogram
COPD
-Per primary
Data Reviewed
-
EKG: Tracing Personally Visualized and interpreted (sr)
Medical Tests (Nuc Med, Echo etc): Report Reviewed by me
Labs: Labs Reviewed by me
--- NOTE | 2024-03-23 10:45 | CM ---
Reviewed the chart notes and spoke with the patient at the beside. The patient was recently discharged from (03/03-03/08) to home with home O2 through [facility]. The patient reports to resides with her sister and [id number] in a one story home
with two steps to enter. The patient has not had VN nor been to a SNF in the past. The patient confirmed her pharmacy of choice is the [facility]. The patient anticipates going to the crime laboratory analyst sometime today. CM continues to be
available to patient/family and is monitoring medical plan for needs at discharge.
Plan: Discharge plans will depend on the patient progress.
--- NOTE | 2024-03-23 10:49 | W.PN.HOSP.TC ---
Today's Communication/Plan
-
.
Assessment / Plan
Assessment / Plan
Physical Exam
General: No Apparent Distress
HEENT: Normocephalic and Anicteric
Respiratory: Wheezes (faint); No Rhonchi
Cardiac: S1/S2
GI: Soft, non tender.
Neuro: AO x 3
Musculoskeletal: no leg edema.
Psych: Calm
# Acute NSTEMI
no active chest pain
c/w aspirin, Add BB, statin
IV heparin gtt, monitor PTT
Move to IVU
order echo
d/w cardiology, appreciate help
# Chronic hypoxic respiratory failure on home O2
Known COPD
continue to taper prednisone
GERD - continue H2 cruz
Seasonal allergies
DVT ppx: IV heparin
Code: Full
Total time spent to see the patient, examine the patient on the floor, review data and lab results, discuss treatment plan with patient and nursing staff around 55 minutes
Anticipated Discharge: 24 - 48 hours
Subjective/Interval History
-
Date of Service: March 23, 2024
No chest pain
Objective Data
-
Labs:
Laboratory Results
03/22/24 03/22/24 03/23/24
22:31 23:49 05:58
WBC 9.3
Hgb 13.5
Hct 39.9
Plt Count 244
APTT 33.0 62.3 H
Sodium 137 138
Potassium 4.0 3.6
Chloride 104 106
Carbon Dioxide 29 28
BUN 25 H 20 H
Creatinine 0.7 0.7
Glucose 102 H 86
Calcium 9.9 9.0
Total Bilirubin 0.4
AST 26
ALT 22
Alkaline Phosphatase 124
03/23/24
12:39
WBC
Hgb
Hct
Plt Count
APTT Pending
Sodium
Potassium
Chloride
Carbon Dioxide
BUN
Creatinine
Glucose
Calcium
Total Bilirubin
AST
ALT
Alkaline Phosphatase
Vital Signs:
Vital Signs
Temp Pulse Resp BP Pulse Ox
98.1 F 84 15 133/92 97
03/23/24 07:25 03/23/24 07:40 03/23/24 07:40 03/23/24 07:25 03/23/24 07:40
[2024-03-23] MEDS: MYCELEX TROCHE PO ×4 (12:26→21:36)
--- NOTE | 2024-03-23 13:06 | ITS.CL.CATH ---
Bottling Line Attendant - Catheterization
Cardiac Catheterization
Procedure Report:
CARDIAC CATHETERIZATION REPORT
Date of Procedure: 03/23/2024
Referring: Juan Antonio Brewster M.D.
INDICATION: Non-ST elevation myocardial infarction.
PROCEDURE:
1. Left heart catheterization.
2. Coronary angiography.
3. Left ventriculography.
ACCESS:
6 Nigerian right radial artery.
CATHETERS:
1. 5 Nigerian JR4.
2. 5 Nigerian JL 3.5.
3. 5 Nigerian angled pigtail.
HEMODYNAMIC DATA
Weight (kg): 55.8
AO (s/d/x, mmHg): 133/86/109
LV (s/x mmHg): 138/14
LEFT VENTRICULOGRAPHY: Performed in an SOTO projection. Mildly dilated left ventricle with mild global hypokinesis and akinesis of the mid to distal inferior wall and mild to moderately reduced systolic function. Left ventricular ejection fraction
estimated at 40%. There is no mitral valve regurgitation. There is no aortic valve insufficiency. The visualized aortic root, ascending aorta and descending aorta appear normal.
CORONARY ANGIOGRAPHY
Dominance: Right.
Left Main: Normal size, bifurcating vessel. There is no coronary disease.
LAD: Normal size vessel giving rise to 1 significant diagonal. There is no coronary artery disease.
Ramus: Congenitally absent.
Circumflex: Normal size, nondominant vessel giving rise to 2 obtuse marginals. There is no coronary artery disease.
RCA: Normal size, dominant vessel with a significant posterolateral arcade. There is vessel tapering of the mid and distal RPDA, out of proportion to the expected rate of taper, possibly consistent with type II SCAD.
INTERVENTION(S)
None.
Closure Device: Vascular band.
Radiation (mGy): 148.72
DAP (cm2.Gy): 13.3694
Fluoroscopy time (minutes): 2.8
Sedation time (minutes): 30
CONCLUSIONS
1. Right dominant circulation with no atherosclerotic coronary disease, but disproportionate tapering of the mid and distal RPDA, possibly consistent with type II SCAD.
2. Normal left ventricular size with mild global hypokinesis and akinesis of the mid to distal inferior wall with mild to moderately depressed systolic function, left ventricular ejection fraction estimated at 40%.
3. Top normal filling pressures (LVEDP = 14 mmHg at 55.8 kg).
RECOMMENDATIONS:
1. Expectant management after cardiac catheterization via right rate approach.
2. Limited weight bearing on the right wrist for one week.
3. Guideline directed medical therapy as hemodynamics tolerate.
4. Discontinue heparin drip.
5. Continue aspirin 81 mg daily (SAPT only).
6. Echocardiogram pending.
Copy to: Juan Antonio Brewster M.D., Kirsty Mae M.D., Mirela Falk M.D.
Dario Leung DO, FACC, FACP
[2024-03-23 13:34] LABS: APTT > 200 Sec (23.4-35.0)
[2024-03-23] MEDS: DUONEB INH (13:50)
[2024-03-23] MEDS: ZOFRAN 4 MG IV (17:07)
[2024-03-23] MEDS: MORPHINE SULFATE 2 MG IV (17:08)
[2024-03-23] MEDS: LIPITOR PO (17:14)
[2024-03-23] MEDS: MOTRIN 600 MG PO (20:07)
[2024-03-23] MEDS: B COMPLEX w/VITAMIN C 1 CAPLET PO (21:29)
[2024-03-23] MEDS: SINGULAIR 10 MG PO (21:30)
[2024-03-23] MEDS: THERAGRAN 1 TABLET PO (21:30)
[2024-03-23] MEDS: ENTRESTO 24 MG/26 MG 1 TAB PO (21:35)
--- NOTE | 2024-03-23 22:10 | PTCARENOTE ---
Pt c/o 06/18 headache throughout her head at shift change despite receiving a dose of Tylenol and Morphine earlier today. Pt had previously stated she is a big tea drinker, having an average of 4 cups of tea per day. Pt was NPO for a majority of last
night into the early afternoon for treatment/procedures and has had 1 cup of tea today. Pt reports a hx of migraines and states she normally takes Motrin for migraine occurrences. 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
a fresh cup of tea, see MAR for admin details. Upon reassessment, pt reports marked improvement.
[2024-03-24 02:58] VITALS: BP 129/77
[2024-03-24 05:27] LABS: Hemoglobin 13.6 g/dL (12.0-16.0); Mean Corp Hgb Conc. 33.2 g/dL (33.0-37.0); Mean Corpuscular Volume 93.4 fL (81.0-99.0); Mean Platelet Volume 9.5 fL (7.4-10.4); Platelet Count 256 10^3/uL (130-400); Red Blood Cell Count 4.39 10^6/uL (4.20-5.40); Red Cell Dist. Width 12.7 % (11.5-14.5); White Blood Cell Count 9.7 10^3/uL (4.8-10.8)
[2024-03-24 05:50] VITALS: BMI 19.6
[2024-03-24 05:59] LABS: Blood Urea Nitrogen 21 mg/dl (7-17); Calcium 9.6 mg/dl (8.4-10.2); Carbon Dioxide 25 mmol/L (22-30); Chloride 104 mmol/L (98-107); Estimated Creatinine Clearance 59 ml/min; Glucose 86 mg/dl (70-99); Potassium 4.2 mmol/L (3.5-5.1); Sodium 138 mmol/L (135-145); eGFR > 60.00
[2024-03-24 07:25] VITALS: BP 131/64
[2024-03-24] MEDS: DUONEB 3 ML INH ×3 (07:53→19:19)
[2024-03-24] MEDS: PULMICORT 0.5 MG INH ×2 (07:53→19:19)
[2024-03-24] MEDS: ADVAIR HFA 230/21 MCG INHALER 2 PUFF INH ×2 (07:54→19:19)
[2024-03-24] MEDS: SODIUM CHLORIDE 3% FOR INHALATION 1 VIAL INH (07:57)
[2024-03-24] MEDS: ENTRESTO 24 MG/26 MG 1 TAB PO ×2 (08:14→21:26)
[2024-03-24] MEDS: WELLBUTRIN XL (24 hour extended release) 150 MG PO (08:15)
[2024-03-24] MEDS: MUCINEX 600 MG PO ×2 (08:15→21:29)
[2024-03-24] MEDS: DELTASONE 10 MG PO (08:16)
[2024-03-24] MEDS: ZYRTEC 10 MG PO (08:16)
[2024-03-24] MEDS: MYCELEX TROCHE PO ×5 (08:16→21:30)
[2024-03-24] MEDS: LOW STRENGTH ASPIRIN 81 MG PO (08:16)
[2024-03-24] MEDS: TOPROL XL 12.5 MG PO (08:16)
[2024-03-24] MEDS: TYLENOL 650 MG PO (09:37)
--- NOTE | 2024-03-24 09:54 | W.PN.HOSP.TC ---
Today's Communication/Plan
-
.
Assessment / Plan
Assessment / Plan
Physical Exam
General: No Apparent Distress
HEENT: Normocephalic and Anicteric
Respiratory: less Wheezes; No Rhonchi
Cardiac: S1/S2
GI: Soft, non tender.
Neuro: AO x 3
Musculoskeletal: no leg edema.
Psych: Calm
# Acute Type II FL
no active chest pain. Positive troponin, initial troponin 0.911 then peaked at 2.110 and then came down
Postcardiac catheterization that showed mild global hypokinesis/akinesis of the mid to distal inferior wall/estimated LVEF 40%. Nonobstructive coronary disease. Status post intravenous heparin.
Echocardiogram showed LVEF 40 -45%, global diffuse hypokinesis, stage I diastolic dysfunction/no significant valvular disease.Started on GDMT including aspirin, Toprol-XL, Entresto, statin.
proBNP on admission 476
A.m. blood pressure 131/64
Patient is stressed about her new diagnoses. Encouragement provided to ther.
d/w cardiology, appreciate help
# Chronic hypoxic respiratory failure on home O2
Known COPD last dose
continue to taper prednisone. Last dose 03/25.
GERD - continue H2 cruz
Seasonal allergies
DVT ppx: Changed to subcu heparin
Code: Full
Total time spent to see the patient, examine the patient on the floor, review data and lab results, discuss treatment plan with patient and nursing staff around 57 minutes
Anticipated Discharge: 24 - 48 hours
Subjective/Interval History
-
Date of Service: March 24, 2024
No chest pain
No sob
feels better
Admits to stress in her life, became tearful
Objective Data
-
Labs:
Laboratory Results
03/24/24
04:38
WBC 9.7
Hgb 13.6
Hct 41.0
Plt Count 256
Sodium 138
Potassium 4.2
Chloride 104
Carbon Dioxide 25
BUN 21 H
Creatinine 0.8
Glucose 86
Calcium 9.6
Vital Signs:
Vital Signs
Temp Pulse Resp BP Pulse Ox
97.7 F 95 18 131/64 92
03/24/24 07:25 03/24/24 07:58 03/24/24 07:58 03/24/24 07:25 03/24/24 08:20
I&O
03/23/24 03/24/24 03/25/24
06:59 06:59 06:59
Intake Total 780 / 780
Balance 780 / 780
[2024-03-24 11:10] VITALS: BP 110/60
--- NOTE | 2024-03-24 12:03 | W.PN.CD ---
Today's Communication / Plan
-
Add [id number]
Cont other meds
Impression / Plan
-
68-year-old female with history of smoking recently quit in October 2023, pneumonia, GERD and COPD who is here today for chest pain. Given her elevated troponins and chest pain this is likely an NSTEMI.
NSTEMI 2/2 SCAD now with HFrEF 40-45%
-Entresto Jardiance Metoprolol
- MRA likely outpatietn
- aspirin daily
HLD
- statin
COPD
-Per primary
Subjective: feeling better, remains on 02, likely d/c tomorrow
TTE: CONCLUSIONS
Normal LV size with mildly reduced systolic function.
LVEF is 40 to 45% by Victoria's method of discs.
Global diffuse hypokinesis.
Stage I diastolic dysfunction suggestive of abnormal relaxation.
Normal right ventricular size and function.
No significant valvular disease.
Compared to prior from July 20, 2017, overall LV function is mildly
reduced at 40 to 45% from normal, 55 to 60%.
Physical Exam
Vital Signs/Labs
Vital Signs
Temp Pulse Resp BP Pulse Ox
97.7 F 95 18 131/64 92
03/24/24 07:25 03/24/24 07:58 03/24/24 07:58 03/24/24 07:25 03/24/24 08:20
03/23/24 03/24/24 03/25/24
06:59 06:59 06:59
Actual Weight 123 lb 3.2 oz 121 lb 3 oz
03/24/24 04:38
03/24/24 04:38
APTT > 200 Sec (23.4-35.0) H* 03/23/24 12:34
Triglycerides 104 mg/dl (10-149) 03/23/24 05:58
LDL Cholesterol, Calc 121 mg/dl 03/23/24 05:58
VLDL Cholesterol, Calc 20 mg/dl (0-30) 03/23/24 05:58
HDL Cholesterol 78 mg/dl 03/23/24 05:58
03/22/24
22:31
[id number] Pept 476
LAB Results
03/22/24 03/23/24 03/23/24
22:31 00:21 05:58
Troponin I 0.911 H* 1.350 H* D 2.110 H* D
03/23/24
12:34
Troponin I 1.700 H*
Physical Exam
Constitutional: No acute distress
EENT: Anicteric
Cardiovascular: Rhythm & rate is regular and Pedal edema is absent
Respiratory: Respiratory effort normal and Lungs clear to auscul.
GI: Soft
Neuro/Psych: AO x 3
Data Reviewed
-
Date of Service: March 24, 2024
Medical Decision Making: Reviewed Test Results
EKG: Tracing Personally Visualized and interpreted (sr)
Echo: Report Reviewed by me
Labs: Labs Reviewed by me
--- NOTE | 2024-03-24 12:49 | CM ---
Consult received for leung checks: Jardiance 10mg daily $47/month; Entresto 24/26mg bid $47/month.
[2024-03-24] MEDS: JARDIANCE 10 MG PO (13:46)
[2024-03-24 15:25] VITALS: BP 116/67
--- NOTE | 2024-03-24 16:00 | CM ---
Reviewed the chart notes and spoke with the patient at the bedside. IMM signed and placed on chart. CM continues to be available to patient/family and is monitoring medical plan for needs at discharge.
Plan: Discharge to home when medically stable. No needs anticipated.
[2024-03-24] MEDS: LIPITOR 40 MG PO (16:46)
[2024-03-24 19:15] LABS: Hepatitis C Antibody Negative (Negative)
[2024-03-24 20:10] VITALS: BP 152/63
[2024-03-24] MEDS: B COMPLEX w/VITAMIN C 1 CAPLET PO (21:26)
[2024-03-24] MEDS: THERAGRAN 1 TABLET PO (21:29)
[2024-03-24] MEDS: SINGULAIR 10 MG PO (21:29)
[2024-03-24] MEDS: HEPARIN 5000 UNITS SC (21:32)
[2024-03-24 23:45] VITALS: BP 130/73
[2024-03-25 03:30] VITALS: BP 132/73
[2024-03-25 05:56] VITALS: BMI 19.6
[2024-03-25 07:08] LABS: Blood Urea Nitrogen 21 mg/dl (7-17); Calcium 9.1 mg/dl (8.4-10.2); Carbon Dioxide 26 mmol/L (22-30); Chloride 107 mmol/L (98-107); Estimated Creatinine Clearance 68 ml/min; Glucose 100 mg/dl (70-99); Potassium 3.9 mmol/L (3.5-5.1); Sodium 139 mmol/L (135-145); eGFR > 60.00
[2024-03-25 07:20] VITALS: BP 116/73
[2024-03-25] MEDS: DUONEB 3 ML INH (07:38)
[2024-03-25] MEDS: SODIUM CHLORIDE 3% FOR INHALATION 1 VIAL INH (07:38)
[2024-03-25] MEDS: PULMICORT 0.5 MG INH (07:38)
[2024-03-25] MEDS: ADVAIR HFA 230/21 MCG INHALER 2 PUFF INH (07:39)
[2024-03-25 07:40] LABS: Glucose - Point of Care 171 mg/dl (70-99)
[2024-03-25] MEDS: HEPARIN 5000 UNITS SC (08:58)
[2024-03-25] MEDS: LOW STRENGTH ASPIRIN 81 MG PO (08:59)
[2024-03-25] MEDS: ENTRESTO 24 MG/26 MG 1 TAB PO (08:59)
[2024-03-25] MEDS: WELLBUTRIN XL (24 hour extended release) 150 MG PO (08:59)
[2024-03-25] MEDS: MYCELEX TROCHE PO ×2 (09:00→11:00)
[2024-03-25] MEDS: TOPROL XL 25 MG PO (09:00)
[2024-03-25] MEDS: MUCINEX 600 MG PO (09:00)
[2024-03-25] MEDS: ZYRTEC 10 MG PO (09:00)
[2024-03-25] MEDS: JARDIANCE 10 MG PO (09:00)
[2024-03-25] MEDS: DELTASONE 10 MG PO (09:01)
--- NOTE | 2024-03-25 09:43 | W.PN.CD ---
Today's Communication / Plan
-
discharge planning on current meds: Toprol XL 25mg bid, entresto 24/26mg bid, farxiga 10mg daily, ASA 81mg daily
we have arranged for follow up, and placed in chart
please call us with additional questions
Impression / Plan
-
68-year-old female with history of smoking recently quit in October 2023, pneumonia, GERD and COPD who is admitted with chest pain.
NSTEMI 2/2 SCAD now with cardiomyopathy, HFrEF 40-45%
-interventional cards records reviewed: recs ASA 81mg daily
-increase Toprol XL to 25mg bid
-continue entresto 24/26mg bid, farxiga 10mg daily
-assess for aldactone as outpatient
HLD
- statin
COPD
-Per primary
Subjective:
No chest pain.
TTE: CONCLUSIONS
Normal LV size with mildly reduced systolic function.
LVEF is 40 to 45% by Victoria's method of discs.
Global diffuse hypokinesis.
Stage I diastolic dysfunction suggestive of abnormal relaxation.
Normal right ventricular size and function.
No significant valvular disease.
Compared to prior from July 20, 2017, overall LV function is mildly
reduced at 40 to 45% from normal, 55 to 60%.
Physical Exam
Vital Signs/Labs
Vital Signs
Temp Pulse Resp BP Pulse Ox
98.0 F 87 24 116/73 98
03/25/24 07:20 03/25/24 08:59 03/25/24 07:41 03/25/24 08:59 03/25/24 07:41
03/24/24 03/25/24 03/26/24
06:59 06:59 06:59
Actual Weight 54.97 kg 54.97 kg
03/24/24 04:38
03/25/24 05:58
APTT > 200 Sec (23.4-35.0) H* 03/23/24 12:34
Triglycerides 104 mg/dl (10-149) 03/23/24 05:58
LDL Cholesterol, Calc 121 mg/dl 03/23/24 05:58
VLDL Cholesterol, Calc 20 mg/dl (0-30) 03/23/24 05:58
HDL Cholesterol 78 mg/dl 03/23/24 05:58
03/22/24
22:31
[id number] Pept 476
LAB Results
03/22/24 03/23/24 03/23/24
22:31 00:21 05:58
Troponin I 0.911 H* 1.350 H* D 2.110 H* D
03/23/24
12:34
Troponin I 1.700 H*
Physical Exam
Constitutional: No acute distress and Comfortable
EENT: Moist mucous membranes
Cardiovascular: Rhythm & rate is regular, Pedal edema is absent, JVD pressure is normal and Systolic murmur absent
Respiratory: Respiratory effort normal and Lungs clear to auscul.
GI: Soft and Distention absent
Neuro/Psych: AO x 3
Data Reviewed
-
Date of Service: March 25, 2024
EKG: Other (Tele: SR 90s)
Echo: Report Reviewed by me (per note)
Labs: Labs Reviewed by me
--- NOTE | 2024-03-25 10:06 | W.DCSUMMARY ---
Discharge Summary
Discharge Data
Date of Admission: 03/23/24
Date of Discharge: 03/25/24
-
Pending Results: No
Hospital Course
68 years old female presented with chest pain. Patient had positive troponin, initial troponin 0.911 then peaked at 2.110 and then came down. She had echocardiogram that showed left ventricular ejection fraction 40-45% with a global diffuse
hypokinesia, stage I diastolic dysfunction with no significant valvular disease. Patient had left heart catheterization that did not show obstructive coronary disease. She was diagnosed with type II myocardial infarction and cardiomyopathy.
Cardiology started the patient on cardiac medications including Toprol, Entresto, Farxiga and aspirin. Patient was counseled regarding potential benefits and side effects of these medication, she verbalized understanding. Patient was maintained on
an inhalation therapy and oxygen for recent diagnosis of chronic obstructive pulmonary disease. Patient remained hemodynamically stable and was discharged in a stable condition.
Physical Exam
General: No Apparent Distress
HEENT: Normocephalic and Anicteric
Respiratory: No worsening wheezes or rhonchi
Cardiac: S1/S2
GI: Soft, non tender.
Neuro: AO x 3
Musculoskeletal: no leg edema.
Psych: Calm
Total discharge time spent to see the patient, examine the patient on the floor, review data and lab results, discuss discharge plan with patient, cardiology and nursing staff around 65 minutes
Discharge Plan
-
Patient Disposition: Home (Routine Discharge)
Discharge Diagnosis/Procedures: Cardiomyopathy, status post cardiac catheterization
You were started on new medications, and you tolerated them well.
Toprol XL, beta-cruz, potential side effect include hypotension, bradycardia, fatigue
Entresto, potential side effect renal insufficiency/injury, hyperkalemia.
Farxiga(Jardiance) potential side effects nausea, hypotension, hypoglycemia, renal injury
Atorvastatin, statin therapy for cholesterol, potential side effect, liver injury, muscle pain/tenderness/myositis, fatigue (Talk to Your primary care doctor and director of player personnel if you start to develop muscle tenderness, fatigue/gait dysfunction)
Aspirin, antiplatelet therapy, potential side effect, gastric irritation/gastrointestinal bleeding, skin bruising
Follow-up with your primary care doctor and director of player personnel for further monitoring and recommendations
Do blood work in 1 week to monitor your kidney function, potassium level, blood count and magnesium
Condition: Fair
Diet: Low Sodium
Stand Alone Forms: DC Instructions- Cath/EP Lab
Referrals:
Kirsty Mae MD [Family Provider] - in one to two weeks
Avani Swartz NP [Specified Professional Personl] - 04/13/24 10:20 am (Cardiology followup appointment)
Prescriptions:
New
atorvastatin 40 mg Tablet
40 mg PO QPM Qty: 30 0RF
aspirin [Children's Aspirin] 81 mg Tablet,Chewable
81 mg PO DAILY Qty: 30 0RF
metoprolol succinate 25 mg Tablet Extended Release 24 Hr
25 mg PO BID Qty: 60 0RF
Jardiance 10 mg Tablet
10 mg PO DAILY Qty: 30 0RF
Entresto 24-26 mg Tablet
1 tab PO BID Qty: 60 0RF
Continued
montelukast 10 MG tablet
10 mg PO HS
fluticasone propion-salmeterol [Wixela Inhub] 500-50 mcg/dose blister with device
1 inh INHALATION R BID
budesonide 0.5 mg/2 mL suspension for nebulization
0.5 mg inhalation R BID
multivitamin Tablet
1 tab PO HS
vitamin B complex Tablet Extended Release
1 tab PO HS
cetirizine 10 mg Tablet
10 mg PO DAILY
benzonatate 200 mg capsule
200 mg PO TID PRN (Reason: cough)
calcium carbonate-vitamin D3 [Calcium 600 + D(3)] 600 mg-5 mcg (200 unit) Tablet
1 tab PO HS
guaifenesin [Mucinex] 600 mg Tablet Extended Release 12hr
600 mg PO BID
clotrimazole 10 mg mark
10 mg mucous membrane 5/D
ipratropium-albuterol 0.5 mg-3 mg(2.5 mg base)/3 mL solution for nebulization
3 ml INHALATION R TID
famotidine 20 mg Tablet
20 mg PO BID PRN (Reason: heartburn/acid reflux)
bupropion HCl 150 mg tablet extended release 24 hr
150 mg PO DAILY
ipratropium bromide 0.02 % Solution
0.5 mg inhalation R Q6HPRN PRN (Reason: sob or wheezing) Qty: 150 0RF
sodium chloride [NebuSal] 3 % Solution For Nebulization
4 ml inhalation R DAILY Qty: 120 0RF
Saline Nasal 0.65 % Aerosol,Anthony
2 spray intranasal QID Qty: 44 0RF
Discontinued
prednisone 10 mg tablet
10 mg PO DIRECTED Qty: 50 0RF
Rx Instructions:
4 tabs daily x5days, 3 tabs daily x5days, 2 tabs daily x5days, 1 tab daily x5days.
azithromycin 250 mg tablet
250 mg PO DAILY
Patient Comments:
03/22/2024: Family unsure if this was restarted after Cefpodoxime completed.
Discharge Orders:
Discharge Patient (As Directed); Ordered 03/25/24
Ordered By: Jean Lemon
Discharge Date and Time
Print Language: MALAY
[2024-03-25 11:27] VITALS: BP 128/80
--- NOTE | 2024-03-25 12:07 | W.PN.UPDATE ---
Update Note
Progress Note Update
Patient has chronic hypoxic respiratory failure
Patient is a very active patient and would benefit from portable oxygen concentrator for her activities.
End
== END 2024-03-25 13:00 | disposition home or self-care (01) | DRG 281 ==
LOC: 2 NORTH 00:36
PROVIDERS: Nurse Practitioner; Student in an Organized Health Care Education/Training Program; ADMITTING PHYSICIAN Internal Medicine; ATTENDING PHYSICIAN Internal Medicine; EMERGENCY PHYSICIAN Emergency Medicine; FAMILY PHYSICIAN Internal Medicine; OTHER PHYSICIAN Internal Medicine Cardiovascular Disease
PROC: 4A023N7 Measurement of Cardiac Sampling and Pressure, Left Heart, Percutaneous Approach (ICD-10-PCS; 2024-03-23)
PROC: B2111ZZ Fluoroscopy of Multiple Coronary Arteries using Low Osmolar Contrast (ICD-10-PCS; 2024-03-23)
PROC: B2151ZZ Fluoroscopy of Left Heart using Low Osmolar Contrast (ICD-10-PCS; 2024-03-23)
DX: I21.A1 Myocardial infarction type 2 (principal); I42.9 Cardiomyopathy, unspecified; J96.11 Chronic respiratory failure with hypoxia; F17.200 Nicotine dependence, unspecified, uncomplicated; K21.9 Gastro-esophageal reflux disease without esophagitis; J44.89 Other specified chronic obstructive pulmonary disease
CPT/HCPCS: 71275; 80048; 80053; 80061; 82962; 83880; 84484; 85025; 85027; 85730; 86803; 93005; 93306; 93458; 94640; 99291; C1894; Q9967

== ENCOUNTER → 2024-06-08 09:17 | Outpatient (REF) | payer OTHER, SELFPAY ==
[2024-06-08 09:50] VITALS: BP 131/69; BP_SYST 97
[2024-06-08 09:56] VITALS: BP 131/69; BP_SYST 97
== END ==
LOC: RADI 09:17
PROVIDERS: ATTENDING PHYSICIAN Nurse Practitioner Family
DX: E04.2 Nontoxic multinodular goiter (principal)
CPT/HCPCS: 88173; 10005; 10006

== ENCOUNTER → 2024-06-28 12:53 | Outpatient (REF) | payer OTHER, SELFPAY | LOC: HWRCS 12:53 | PROVIDERS: ATTENDING PHYSICIAN Nurse Practitioner; FAMILY PHYSICIAN Nurse Practitioner Family | DX: I42.0 Dilated cardiomyopathy (principal) | CPT/HCPCS: 93306 ==

== ENCOUNTER → 2024-09-23 12:52 | Outpatient (REF) | payer OTHER, SELFPAY | LOC: HWRAD 12:52 | PROVIDERS: ATTENDING PHYSICIAN Nurse Practitioner Adult Health; FAMILY PHYSICIAN Nurse Practitioner Family | DX: J44.9 Chronic obstructive pulmonary disease, unspecified (principal) | CPT/HCPCS: 71046 ==

== ENCOUNTER → 2025-04-28 14:40 | Outpatient (REF) | payer OTHER, SELFPAY | LOC: HWRAD 14:40 | PROVIDERS: ATTENDING PHYSICIAN Physician Assistant Medical | DX: M25.511 Pain in right shoulder (principal) | CPT/HCPCS: 73030 ==

== ENCOUNTER → 2025-07-11 13:47 | Outpatient (REF) | payer OTHER, SELFPAY | LOC: RCS 13:47 | PROVIDERS: ATTENDING PHYSICIAN Internal Medicine Cardiovascular Disease; FAMILY PHYSICIAN Nurse Practitioner Family | DX: I50.22 Chronic systolic (congestive) heart failure (principal) | CPT/HCPCS: 93306 ==